=== PATIENT | female | born 1945 | race Caucasian/White ===

== ENCOUNTER → 2020-09-26 13:35 | Outpatient (BNVA) | payer MEDICARE, OTHER, SELFPAY | PROVIDERS: PCP Family Medicine; Referring Provider Family Medicine; Visit Provider Student in an Organized Health Care Education/Training Program | DX: M35.3 Polymyalgia rheumatica (principal); Z79.52 Long term (current) use of systemic steroids | CPT/HCPCS: 99212 ==

== ENCOUNTER 2020-10-08 13:32 | Outpatient (REF) | payer MEDICARE, OTHER, SELFPAY ==
--- NOTE | 2020-10-08 13:38 | MM_ITS ---
EXAMINATION: BONE DENSITOMETRY CLINICAL INDICATION: Long-term (current) use of systemic steroids. COMPARISON: None (current study represents initial baseline exam). TECHNIQUE: Using a [employer] DXA System (software version: 13.1) manufactured by [employer], dual-energy x-ray absorptiometry was performed of the lumbar spine and left hip. The images are of good technical quality. Summary results are attached. FINDINGS: AP SPINE L1-L4: BMD 1.462 g/cm2, Z-score 3.0, T-score 2.3, normal. LEFT FEMUR, NECK: BMD 0.764 g/cm2, Z-score -0.7, T-score -2.0, osteopenia. LEFT FEMUR, TOTAL: BMD 0.860 g/cm2, Z-score -0.2, T-score -1.2, osteopenia. IDENTIFIED RISK FACTORS: Height loss, secondary osteoporosis, menopause, glucocorticoids (chronic), thiazide. HISTORY OF FRACTURE: None listed. MEDICATIONS: Calcium supplements or multivitamin, vitamin D. MM/XR DEXA axial skeleton IMPRESSION: 1. DIAGNOSIS: Osteopenia based on the lowest T-score value of -2.0 in the femoral neck applying World Health Organization criteria. 2. 10-YEAR FRACTURE RISK PREDICTION, FRAX: Major osteoporotic fracture (clinical spine, forearm, hip or shoulder) 18.5%. Hip fracture 5.3%. 3. Treatment Recommendations: NOF guidelines recommend consideration for treatment in postmenopausal women and men age 50 and older presenting with the following: -A hip or vertebral (clinical or morphometric) fracture. -T-score less than or equal to -2.5 at the femoral neck or spine after appropriate evaluation to exclude secondary causes. -Low bone mass at the hip or spine and a 10-year fracture probability by FRAX of greater than or equal to 3% for hip fracture or greater than or equal to 20% for major osteoporotic fracture based on the [place] adapted WHO algorithm. 4. Other Recommendations: All treatment decisions require clinical judgment and consideration of individual patient factors, including patient preferences, comorbidities, previous drug use, risk factors not captured in the FRAX model (e.g. frailty, falls, vitamin D deficiency, increased bone turnover, interval significant decline in bone density) and possible under or overestimation of fracture risk by FRAX. Additional medical evaluation for secondary cause of low bone mineral density may be appropriate. FUTURE SCAN RECOMMENDATION: People with diagnosed cases of osteoporosis or at high risk for fracture should have regular bone mineral density tests. For patients eligible for Medicare, routine testing is allowed once every 2 years. The testing frequency can be increased to one year for patients who have rapidly progressing disease, those who are receiving or discontinuing medical therapy to restore bone mass, or have additional risk factors.
== END 2020-10-08 13:33 | disposition home or self-care (01) ==
LOC: HO.MAMMO 13:32
PROVIDERS: PCP Family Medicine; Visit Provider Student in an Organized Health Care Education/Training Program
DX: Z13.820 Encounter for screening for osteoporosis (principal); Z78.0 Asymptomatic menopausal state; R29.890 Loss of height; Z79.52 Long term (current) use of systemic steroids; Z79.899 Other long term (current) drug therapy
CPT/HCPCS: 77080

== ENCOUNTER → 2020-11-28 14:13 | Outpatient (BNVA) | payer MEDICARE, SELFPAY | PROVIDERS: PCP Family Medicine; Visit Provider Student in an Organized Health Care Education/Training Program | DX: M35.3 Polymyalgia rheumatica (principal); M81.0 Age-related osteoporosis without current pathological fracture; Z79.52 Long term (current) use of systemic steroids | CPT/HCPCS: 99212 ==

== ENCOUNTER → 2021-02-06 13:55 | Outpatient (BNVA) | payer MEDICARE, SELFPAY | PROVIDERS: PCP Family Medicine; Visit Provider Student in an Organized Health Care Education/Training Program | DX: M35.3 Polymyalgia rheumatica (principal); M81.0 Age-related osteoporosis without current pathological fracture | CPT/HCPCS: 99212 ==

== ENCOUNTER 2021-06-13 14:05 | Outpatient (REF) | payer MEDICARE, SELFPAY ==
[2021-06-13 15:12] LABS: Alanine Aminotransferase 31 U/L (0-31); Albumin Level 3.6 g/dL (3.5-5.0); Alkaline Phosphatase 102 U/L (39-117); Anion Gap 14 (12-20); Aspartate Amino Transferase 19 U/L (5-31); Bilirubin Total 0.3 mg/dL (0.0-1.0); Blood Urea Nitrogen 18 mg/dL (9-16); C Reactive Protein 0.28 mg/dL (< or = 0.50); Calcium 9.2 mg/dL (8.4-10.2); Carbon Dioxide 25 mmol/L (22-29); Chloride 107 mmol/L (96-108); Estimated Glomerular Filt Rate > 60; Glucose Random 136 mg/dL (60-115); Potassium 3.9 mmol/L (3.3-5.1); Sodium 142 mmol/L (135-145); Total Protein 6.6 g/dL (6.5-8.0)
[2021-06-13 15:36] LABS: Erythrocyte Sedimentation Rate 22 MM/HR (0-20)
[2021-06-18 12:56] LABS: Vitamin D 25-OH, D2 <4 ng/mL; Vitamin D 25-OH, D3 53 ng/mL; Vitamin D 25-OH, Total 53 ng/mL (30-100)
== END 2021-06-13 14:06 | disposition home or self-care (01) ==
LOC: HO.LAB 14:05
PROVIDERS: PCP Family Medicine; Visit Provider Student in an Organized Health Care Education/Training Program
DX: M81.0 Age-related osteoporosis without current pathological fracture (principal)
CPT/HCPCS: 36415; 80053; 82306; 85652; 86140

== ENCOUNTER → 2021-06-17 15:08 | Outpatient (BNVA) | payer MEDICARE, SELFPAY | PROVIDERS: PCP Family Medicine; Visit Provider Student in an Organized Health Care Education/Training Program | DX: M35.3 Polymyalgia rheumatica (principal); M81.0 Age-related osteoporosis without current pathological fracture | CPT/HCPCS: 99212 ==

== ENCOUNTER → 2021-12-18 12:22 | Outpatient (BNVA) | payer MEDICARE, SELFPAY | PROVIDERS: PCP Family Medicine; Visit Provider Nurse Practitioner Family | DX: M35.3 Polymyalgia rheumatica (principal); M81.0 Age-related osteoporosis without current pathological fracture; M54.50 Low back pain, unspecified | CPT/HCPCS: 99212 ==

== ENCOUNTER 2022-06-15 09:47 | Outpatient (REF) | payer MEDICARE, SELFPAY ==
[2022-06-15 12:01] LABS: Alanine Aminotransferase 27 U/L (0-31); Albumin Level 3.4 g/dL (3.5-5.0); Alkaline Phosphatase 103 U/L (39-117); Anion Gap 14 (12-20); Aspartate Amino Transferase 24 U/L (5-31); Bilirubin Total 0.4 mg/dL (0.0-1.0); Blood Urea Nitrogen 19 mg/dL (9-16); Calcium 8.8 mg/dL (8.4-10.2); Carbon Dioxide 26 mmol/L (22-29); Chloride 106 mmol/L (96-108); Estimated Glomerular Filt Rate > 60; Glucose Random 114 mg/dL (60-115); Sodium 142 mmol/L (135-145); Total Protein 6.5 g/dL (6.5-8.0)
[2022-06-15 12:25] LABS: Vitamin D 25-OH Total 44.2 ng/mL (>30)
[2022-06-15 12:26] LABS: Erythrocyte Sedimentation Rate 25 MM/HR (0-20)
== END 2022-06-15 09:48 | disposition home or self-care (01) ==
LOC: HO.WFDLDS 09:47
PROVIDERS: Visit Provider Nurse Practitioner Family
DX: M35.3 Polymyalgia rheumatica (principal)
CPT/HCPCS: 36415; 80053; 82306; 85652; 86140

== ENCOUNTER → 2022-06-17 12:28 | Outpatient (BNVA) | payer MEDICARE, SELFPAY | PROVIDERS: PCP Internal Medicine; Visit Provider Nurse Practitioner Family | DX: M35.3 Polymyalgia rheumatica (principal); M85.80 Other specified disorders of bone density and structure, unspecified site; M53.3 Sacrococcygeal disorders, not elsewhere classified | CPT/HCPCS: 99212 ==

== ENCOUNTER 2022-06-25 12:49 | Outpatient (REF) | payer MEDICARE, SELFPAY ==
--- NOTE | ~2022-06-25 | XR_ITS ---
EXAMINATION: XR SACROILIAC JOINTS CLINICAL INFORMATION: Sacrococcygeal disorder COMPARISON: None TECHNIQUE: 3 views of the sacroiliac joints FINDINGS: No acute visible fracture or dislocation. Bilateral sacroiliac joints are patent. Very slight degenerative changes at the inferior margin of the left sacroiliac joint. Degenerative arthropathy at the lumbosacral junction. Joint spaces and alignment are otherwise maintained. Soft tissues are unremarkable. XR/XR sacroiliac joint min 3V IMPRESSION: 1. No acute visible fracture or dislocation. 2. Bilateral sacroiliac joints are patent. 3. Very slight degenerative changes at the inferior margin of the left sacroiliac joint. 4. Degenerative arthropathy at the lumbosacral junction.
== END 2022-06-25 12:50 | disposition home or self-care (01) ==
LOC: HO.XRAY 12:49
PROVIDERS: PCP Internal Medicine; Visit Provider Nurse Practitioner Family
DX: M53.3 Sacrococcygeal disorders, not elsewhere classified (principal)
CPT/HCPCS: 72202

== ENCOUNTER 2022-10-13 10:58 | Outpatient (REF) | payer MEDICARE, SELFPAY ==
--- NOTE | ~2022-10-13 | MM_ITS ---
EXAMINATION: BONE DENSITOMETRY CLINICAL INDICATION: Other specified disorders of bone density and structure. COMPARISON: Baseline BD dated 10/08/2020. TECHNIQUE: Using a [employer] DXA System (software version: 13.1) manufactured by [employer], dual-energy x-ray absorptiometry was performed of the lumbar spine and left hip. The images are of good technical quality. Summary results are attached. FINDINGS: AP SPINE L1-L4 (excluding L3): The data of L1-L4 has been changed to exclude the L3 vertebral body, because degenerative changes at this level may cause overestimation of lumbar spine density. Current: BMD 1.457 g/cm2, Z-score 3.0, T-score 2.4, normal, 1.9% increase from baseline (<5% change is not significant). Baseline: BMD 1.430 g/cm2. LEFT FEMUR, NECK: Current: BMD 0.799 g/cm2, Z-score -0.4, T-score -1.7, osteopenia. Baseline: BMD 0.764 g/cm2. LEFT FEMUR, TOTAL: Current: BMD 0.860 g/cm2, Z-score -0.1, T-score -1.2, osteopenia, 0.0% no change from baseline (<5% change is not significant). Baseline: BMD 0.860 g/cm2. IDENTIFIED RISK FACTORS: Height loss, secondary osteoporosis, glucocorticoids (chronic), thiazide, menopause. HISTORY OF FRACTURE: None listed. MEDICATIONS: Vitamin D, bisphosphonate. MM/XR DEXA axial skeleton IMPRESSION: 1. DIAGNOSIS: Osteopenia based on the lowest T-score value of -1.7 in the femoral neck applying World Health Organization criteria. 2. 10-YEAR FRACTURE RISK PREDICTION, FRAX: Not performed in this patient on estrogen or bone building treatments. 3. Treatment Recommendations: NOF guidelines recommend consideration for treatment in postmenopausal women and men age 50 and older presenting with the following: -A hip or vertebral (clinical or morphometric) fracture. -T-score less than or equal to -2.5 at the femoral neck or spine after appropriate evaluation to exclude secondary causes. -Low bone mass at the hip or spine and a 10-year fracture probability by FRAX of greater than or equal to 3% for hip fracture or greater than or equal to 20% for major osteoporotic fracture based on the [place] adapted WHO algorithm. 4. Other Recommendations: All treatment decisions require clinical judgment and consideration of individual patient factors, including patient preferences, comorbidities, previous drug use, risk factors not captured in the FRAX model (e.g. frailty, falls, vitamin D deficiency, increased bone turnover, interval significant decline in bone density) and possible under or overestimation of fracture risk by FRAX. Additional medical evaluation for secondary cause of low bone mineral density may be appropriate. FUTURE SCAN RECOMMENDATION: People with diagnosed cases of osteoporosis or at high risk for fracture should have regular bone mineral density tests. For patients eligible for Medicare, routine testing is allowed once every 2 years. The testing frequency can be increased to one year for patients who have rapidly progressing disease, those who are receiving or discontinuing medical therapy to restore bone mass, or have additional risk factors.
== END 2022-10-13 10:59 | disposition home or self-care (01) ==
LOC: HO.MAMMO 10:58
PROVIDERS: PCP Internal Medicine; Visit Provider Nurse Practitioner Family
DX: Z13.820 Encounter for screening for osteoporosis (principal); Z78.0 Asymptomatic menopausal state; M85.80 Other specified disorders of bone density and structure, unspecified site
CPT/HCPCS: 77080

== ENCOUNTER → 2022-12-03 12:57 | Outpatient (BNVA) | payer MEDICARE, SELFPAY | PROVIDERS: PCP Internal Medicine; Visit Provider Nurse Practitioner Family | DX: M85.80 Other specified disorders of bone density and structure, unspecified site (principal); M35.3 Polymyalgia rheumatica | CPT/HCPCS: 99212 ==

== ENCOUNTER 2023-06-09 14:08 | Outpatient (AMB) | payer MEDICARE, SELFPAY ==
[2023-06-09 14:14] VITALS: BP 116/64; PULSE 89; TEMP 36.4; O2SAT 98; BMI 45.0
--- NOTE | 2023-06-09 14:14 | MHC.OFFVIS ---
Intake Vital Signs 06/09/23 14:14 Height 5 ft 2 in Weight 246 lb 4.101 oz BMI 45.0 BP 116/64 Blood Pressure Location Rt brachial Position Sitting Pulse 89 Pulse Source Pulse Oximeter Temp 97.5 F Temp Source Skin Pulse Oximetry (%) 98 Intake Visit Reasons: osteoporosis Intake Note: Pt seen today for Osteoporosis follow up. S/p ICD insertion Chaser Tar Required: No Accompanied by: Self / Same As Patient Allergies penicillin V Allergy (Intermediate, Verified 06/09/23 14:17) Rash benazepril Allergy (Mild, Verified 06/09/23 14:17) Cough aspirin Adverse Reaction (Intermediate, Verified 06/09/23 14:17) bleeding Medication List - Last Reconciled 06/09/23 by Barb Lawler MD acetaminophen ER (Tylenol Arthritis Pain) 1,300 mg PO BID amiodarone 400 mg PO DAILY apixaban (Eliquis) 5 mg PO BID bumetanide 1 mg PO DAILY celecoxib (Celebrex) 200 mg PO BID cholecalciferol (vitamin D3) 25 mcg PO DAILY esomeprazole magnesium (Nexium) 40 mg PO DAILY folic acid 1 mg PO DAILY magnesium hydroxide 400 mg PO DAILY metoprolol succinate ER 50 mg PO DAILY omega-3 fatty acids (Fish Oil Concentrate) 1,000 mg PO DAILY rosuvastatin 10 mg PO DAILY sacubitril-valsartan 49-51 mg (Entresto) 1 tab PO BID spironolactone 25 mg PO DAILY sulfasalazine (Azulfidine EN-tabs) 1,000 mg PO BID HPI HPI Comments History of Present Illness Details 77yoF presents for follow-up of osteopenia. She has a history of PMR as well. was last seen by Yesenia Rudd 12/17 Off prednisone since November 2020. On sulfasalazine for history of Crohn's disease for decades (dx in her 30s). Was on alendronate for osteoporosis for 8 months stopped after May 2021 due to hip pain. Per patient report her hip pain resolved once the alendronate was discontinued. patient states that she is doing well overall. last month she was found to have a left bundle branch block and now she has a pacemaker placed. See gets bilateral knee pain with walking as well as back pain with walking. She uses a cane for balance. She takes Celebrex 20 mg Twice daily. She is also on Eliquis. denies any GI bleeding. Has had bilateral shoulder stiffness for many years. She has had bilateral shoulder replacement [facility], [facility] Medical History (Updated 06/09/23 @ 14:45 by Barb Lawler MD) Osteopenia with high risk of fracture Polymyalgia rheumatica Surgical History History of implantable cardioverter-defibrillator (ICD) insertion Social History Household Members: Spouse Alcohol intake: current Alcohol intake frequency: a few times a month Patient Tobacco Use Status: Never used Tobacco e-Cigarette/Vaping Use: Never Used Review of Systems [facility] [place] Reports back pain, Reports arthralgias and Denies radiating pain into limb Physical Exam Vital Signs: Last Vital Signs Temp 97.5 F 06/09/23 14:14 Pulse 89 06/09/23 14:14 BP 116/64 06/09/23 14:14 Pulse Ox 98 06/09/23 14:14 BMI result Body Mass Index 45.0 Const General: cooperative, healthy appearing and comfortable Nutritional Appearance: obese morbidly obese Orientation/consciousness: patient oriented x3 Limitations: ambulation with cane HEENT Head: Yes normocephalic and Yes atraumatic Mouth: moist mucous membranes Resp Effort & Inspection: normal respiratory effort and able to speak in complete sentences Neuro General: patient oriented x3 Extrem Other: osteoarthritic changes of both hands with no active synovitis. bilateral limited shoulder abduction Assessment & Plan Assessment & Plan (1) Osteopenia: Comment: DEXA in 2019 with T-score? -2.0 with high FRAX she was started on alendronate due to the high FRAX which she took for approximately 8 months and stopped May 2021.? Alendronate was discontinued by the patient due to hip pain DEXA 09/2022 with T -1.7 Code(s): M85.80 - Other specified disorders of bone density and structure, unspecified site Qualifiers: Osteopenia location: multiple sites Qualified Code(s): M85.89 - Other specified disorders of bone density and structure, multiple sites Plan: 77-year-old female with osteopenia presents for follow-up. No history of fractures. Since last visit. Patient's most recent DEXA scan shows an improved T-score. FRAX is 12% for major osteoporosis fracture and 2.7% for hip fractures. No need to restart antiresorptives at this point. Repeat DEXA 09/2024 (2) Polymyalgia rheumatica: Code(s): M35.3 - Polymyalgia rheumatica Plan: Patient diagnosed with PMR based on bilateral shoulder pain. Off prednisone since November 2020. Her pain improved after bilateral shoulder replacements. Her inflammatory markers have consistently been stable. PMR continues to appear to be in remission. No further action needed at this time. (3) Generalized osteoarthritis: Code(s): M15.9 - Polyosteoarthritis, unspecified Plan: Gets low back pain with activity as well as bilateral knee pain with walking. Is currently taking Celebrex 200 mg Twice daily as a standing dose. Discussed the cardiovascular risk with NSAIDs. Advised patient to try to reduce the Celebrex to 200 mg once daily or only use as needed. Try to use Tylenol Arthritis as much as possible, apply Voltaren gel for both knees 4 times a day. Plan I spent 26 minutes reviewing patient's chart, evaluating patient, counseling patient and documenting in the chart Coding Level of Care Code Est Pt Level 4 (88694) Diagnoses Osteopenia M85.89 Osteopenia location: multiple sites Polymyalgia rheumatica M35.3 Generalized osteoarthritis M15.9
== END 2023-06-09 14:42 | disposition home or self-care (01) ==
PROVIDERS: PCP Internal Medicine; Visit Provider Student in an Organized Health Care Education/Training Program
DX: M85.89 Other specified disorders of bone density and structure, multiple sites (principal); M35.3 Polymyalgia rheumatica; M15.9 Polyosteoarthritis, unspecified
CPT/HCPCS: 99214

== ENCOUNTER → 2023-06-09 14:08 | Outpatient (BNVA) | payer MEDICARE, SELFPAY | PROVIDERS: PCP Internal Medicine; Visit Provider Student in an Organized Health Care Education/Training Program | DX: M85.89 Other specified disorders of bone density and structure, multiple sites (principal); M35.3 Polymyalgia rheumatica; M15.9 Polyosteoarthritis, unspecified | CPT/HCPCS: 99212 ==

== ENCOUNTER 2024-03-28 10:01 | Outpatient (AMB) | payer MEDICARE, SELFPAY ==
--- NOTE | 2024-03-28 10:13 | MHC.PC.OV ---
Vital Signs 03/28/24 10:22 Height 5 ft 2.2 in Weight 240 lb 6 oz BMI 43.7 BP 130/68 Blood Pressure Location Lt brachial Position Sitting Respiration 14 Pulse 80 Pulse Source Pulse Oximeter Temp 97.4 F Temp Source Oral Pulse Oximetry (%) 98 Oxygen Delivery Method Room Air Intake Visit Reasons: Establish Care / Discharge follow up Allergies penicillin V Allergy (Intermediate, Verified 03/28/24 10:14) Rash benazepril Allergy (Mild, Verified 03/28/24 10:14) Cough aspirin Adverse Reaction (Intermediate, Verified 03/28/24 10:14) bleeding Medication List - Last Reconciled 03/28/24 by Megan Bolanos MD acetaminophen ER (Tylenol Arthritis Pain) 1,300 mg PO BID amiodarone 400 mg PO DAILY apixaban (Eliquis) 5 mg PO BID bumetanide 1 mg PO DAILY celecoxib (Celebrex) 200 mg PO BID cholecalciferol (vitamin D3) 25 mcg PO DAILY esomeprazole magnesium (Nexium) 40 mg PO DAILY folic acid 1 mg PO DAILY magnesium hydroxide 400 mg PO DAILY metoprolol succinate ER 50 mg PO DAILY omega-3 fatty acids (Fish Oil Concentrate) 1,000 mg PO DAILY rosuvastatin 10 mg PO DAILY sacubitril-valsartan 49-51 mg (Entresto) 1 tab PO BID spironolactone 25 mg PO DAILY sulfasalazine (Azulfidine EN-tabs) 1,000 mg PO BID Tobacco use date assessed: 03/28/24 Fall risk assessment: No Falls in past year Last assessed Fall Risk: 03/28/24 Dental Screening Dental Screen Date: 03/28/24 Did you have a dental visit in the last 12 months?: Yes Did you have a dental problem in the last 6 months where you did not have access to dental care?: No Was dental information given to patient?: Patient has dentist HPI HPI Comments History of Present Illness Details Patient is an 78 year old female with a past medical history of CHF, atrial fibrillation, GERD presenting to [facility] Hospitalized March 15-. Malaise and fatigue, dysuria and palpitaitons. UCx+, afib with RVR. Treated with abx therapy CV: Follows with Dr Hunter. On eliquis, bumex, entresto, spironolactone, amoiodarone (restarted March 19) 02/24/2024 Mammogram [facility] Medical History (Updated 04/02/24 @ 11:36 by Megan Bolanos MD) Osteopenia with high risk of fracture Polymyalgia rheumatica Surgical History (Updated 03/28/24 @ 10:57 by Megan Bolanos MD) History of implantable cardioverter-defibrillator (ICD) insertion Social History Household Members: Spouse Housing: House Alcohol intake: current Alcohol intake frequency: a few times a month Patient Tobacco Use Status: Never used Tobacco e-Cigarette/Vaping Use: Never Used Second Hand Smoke Exposure: Yes (past) service: No Current occupational status: employed 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 1. Little interest or pleasure in doing things: not at all 2. Feeling down, depressed, or hopeless: not at all 3. Trouble falling or staying asleep, or sleeping too much: not at all 4. Feeling tired or having little energy: not at all 5. Poor appetite or overeating: several days 6. Feeling bad about yourself - or that you are a failure or have let yourself or your family down: not at all 7. Trouble concentrating on things, such as reading the newspaper or watching television: not at all 8. Moving or speaking so slowly that other people could have noticed. Or the opposite - being so fidgety or restless that you have been moving around a lot more than usual: not at all 9. Thoughts that you would be better off or of hurting yourself in some way: not at all Total score: 1 Depression Screening Interpretation: Negative Depression Screening Done: Yes 46419 - PHQ-9 Billing: Yes Source: Developed by Drs. Kenrick Murrieta, Coni Hernandez, Brien Byers and colleagues, with an educational beverley from [employer]. Thrive Questionnaire Date Thrive assessed: 03/28/24 What is your living situation today?: I have a steady place to live Within the past 12 months, did the food you bought not last and you didn't have the money to get more?: Never true Within the past 12 months, did you worry whether your food would run out before you got money to buy more?: Never true Do you have trouble paying for medicines?: No Do you have trouble getting transportation to medical appointments?: No Do you have trouble paying your heating and electricity bill?: No Do you have trouble taking care of your child, family member or friend?: No Do you have trouble with day-to-day activities such as bathing, preparing meals, shopping, managing finances, etc.?: No Are you currently unemployed and looking for a job?: Yes Are you interested in more education?: No Please select the resources that you would like help with: None THRIVE Score: 0 AUDIT C Alcohol Use Questionnaire (AUDIT-C) 1. How often do you have a drink containing alcohol?: Never 2. How many drinks containing alcohol do you have on a typical day when you are drinking?: 1 or 2 3. How often do you have six or more drinks on one occasion?: Never Total Score: 0 MARY JANE-7 AMB Questionnaire MARY JANE-7 Date MARY JANE - 7 assessed: 03/28/24 Feeling nervous, anxious, or on edge: 1 = Several days Not being able to stop or control worryin = Not at all Worrying too much about different things: 0 = Not at all Trouble relaxin = Not at all Being so restless that it is hard to sit still: 0 = Not at all Becoming easily annoyed or irritable: 0 = Not at all Feeling afraid as if something awful might happen: 0 = Not at all Total MARY JANE-7 score (0-4 normal; 5-9 mild; 10-14 moderate; 15-21 severe): 1 Source: Developed by Drs. Kenrick Murrieta, Coni Hernandez, Brien Byers and colleagues, with an educational beverley from [employer]. Review of Systems Const Details: ROS CONSTITUTIONAL: Denies weight loss, fever and chills. HEENT: Denies changes in vision and hearing. RESPIRATORY: Denies SOB and cough. CV: Denies palpitations and CP GI: Denies abdominal pain, nausea, vomiting and diarrhea. : Denies dysuria and urinary frequency. MSK: Denies new myalgia and joint pain. SKIN: Denies rash and pruritus. NEUROLOGICAL: Denies headache PSYCHIATRIC: Denies recent changes in mood. Physical exam (Primary Care) Vital Signs: Last Vital Signs Temp 97.4 F 03/28/24 10:22 Pulse 80 03/28/24 10:22 Resp 14 03/28/24 10:22 BP 130/68 03/28/24 10:22 Pulse Ox 98 03/28/24 10:22 Oxygen Delivery Method Room Air 03/28/24 10:22 PHYSICAL EXAM: GENERAL: Alert and oriented x 3. NAD EYES: EOMI. Anicteric. HENT: Moist mucous membranes. No scleral icterus. No cervical lymphadenopathy. LUNGS: Clear to auscultation bilaterally. CARDIOVASCULAR: Regular rate and rhythm. No murmur. No JVD. ABDOMEN: Soft, non-tender +bs EXTREMITIES: No edema. Non-tender. SKIN: No rashes or lesions. Warm. NEUROLOGIC: No focal neurological deficits. CN II-XII grossly intact PSYCHIATRIC: Cooperative. Appropriate mood and affect BMI result Body Mass Index 43.7 Tobacco/Smoking Status: Tobacco use Status Tobacco use date assessed 03/28/24 03/28/24 10:20 Patient Tobacco Use Status Never used Tobacco 03/28/24 10:20 e-Cigarette/Vaping Use Never Used 03/28/24 10:20 PHQ-9: PHQ-9 Score PHQ-9: Total score 1 03/28/24 11:20 Depression Screening Interpretation: Negative Thrive Assessment: Date of Thrive Assessment Date Thrive assessed 03/28/24 03/28/24 10:34 Assessment and Plan Assessment & Plan (1) Iron deficiency anemia: Comment: monitor labs. recheck. Code(s): D50.9 - Iron deficiency anemia, unspecified Qualifiers: Iron deficiency anemia type: unspecified iron deficiency Qualified Code(s): D50.9 - Iron deficiency anemia, unspecified (2) LBBB (left bundle branch block): Comment: continue cardiology follow up Code(s): I44.7 - Left bundle-branch block, unspecified (3) Congestive heart failure (CHF): Comment: euvolemic Code(s): I50.9 - Heart failure, unspecified Qualifiers: Heart failure chronicity: chronic Heart failure type: systolic Qualified Code(s): I50.22 - Chronic systolic (congestive) heart failure (4) Hospital discharge follow-up: Code(s): Z09 - Encounter for follow-up examination after completed treatment for conditions other than malignant neoplasm Plan: course reviewed. meds reconciled (5) Generalized osteoarthritis: Code(s): M15.9 - Polyosteoarthritis, unspecified (6) Knee pain, bilateral: Code(s): M25.561 - Pain in right knee; M25.562 - Pain in left knee Orders: Orders IRON PROFILE 03/28/24 D50.9 - Iron deficiency anemia, unspecified, I44.7 - Left bundle-branch block, unspecified, I50.22 - Chronic systolic (congestive) heart failure PT Evaluation and Treatment 03/28/24 M15.9 - Polyosteoarthritis, unspecified, M25.561 - Pain in right knee, M25.562 - Pain in left knee Complete Blood Count Auto Diff 03/28/24 D50.9 - Iron deficiency anemia, unspecified, I44.7 - Left bundle-branch block, unspecified, I50.22 - Chronic systolic (congestive) heart failure Lipid Panel 03/28/24 D50.9 - Iron deficiency anemia, unspecified, I44.7 - Left bundle-branch block, unspecified, I50.22 - Chronic systolic (congestive) heart failure Pathologist Review - CBC 03/28/24 D50.9 - Iron deficiency anemia, unspecified, I44.7 - Left bundle-branch block, unspecified, I50.22 - Chronic systolic (congestive) heart failure Medications: New bumetanide 1 mg PO DAILY 90 tabs 3RF Changed From rosuvastatin 10 mg PO DAILY To rosuvastatin 10 mg PO DAILY 90 days 90 tabs 3RF Coding Level of Care Code TCM Mod MDM <= 14 Days Diagnoses Iron deficiency anemia, unspecified iron deficiency anemia type D50.9 Iron deficiency anemia type: unspecified iron deficiency LBBB (left bundle branch block) I44.7 Chronic systolic congestive heart failure I50.22 Heart failure chronicity: chronic Heart failure type: systolic Hospital discharge follow-up Z09 Generalized osteoarthritis M15.9 Knee pain, bilateral M25.561; M25.562
[2024-03-28 10:22] VITALS: BP 130/68; PULSE 80; RESP 14; TEMP 36.3; O2SAT 98; BMI 43.7
== END 2024-03-28 11:34 | disposition home or self-care (01) ==
PROVIDERS: PCP Internal Medicine; Visit Provider Internal Medicine
DX: D50.9 Iron deficiency anemia, unspecified (principal); I44.7 Left bundle-branch block, unspecified; I50.22 Chronic systolic (congestive) heart failure; Z09 Encounter for follow-up examination after completed treatment for conditions other than malignant neoplasm; M15.9 Polyosteoarthritis, unspecified; M25.561 Pain in right knee; M25.562 Pain in left knee
CPT/HCPCS: 99214

== ENCOUNTER 2024-04-25 10:39 | Outpatient (REF) | payer MEDICARE, SELFPAY ==
[2024-04-25 14:27] LABS: MANUAL DIFF FLAG NO
[2024-04-25 14:33] LABS: Basophils Absolute Auto 0.1 X10*3/uL (0.0-0.2); Basophils Percent Auto 1.4 % (0-2); Eosinophils Absolute Auto 0.2 X10*3/uL (0.0-0.4); Eosinophils Percent Auto 2.9 % (0-4); Hematocrit 40.4 % (37.0-47.0); Hemoglobin 12.1 g/dl (12.0-16.0); Imm Gran Abs Auto 0.02 X10*3/uL (0.00-0.03); Imm Gran Pct Auto 0.3 % (0.0-0.4); Lymphocytes Absolute Auto 2.1 X10*3/uL (1.2-4.9); Lymphocytes Percent Auto 35.8 % (20-40); Mean Corpuscular Hemoglobin 26.4 pg (27.0-33.0); Mean Corpuscular Volume 88.2 fL (80.0-98.0); Monocytes Absolute Auto 0.4 X10*3/uL (0.1-1.2); Monocytes Percent Auto 7.2 % (2-11); Neutrophils Absolute Auto 3.1 x10*3/uL (2.0-8.3); Neutrophils Percent Auto 52.4 % (45-73); Platelet Count 342 X10*3/uL (160-400); Red Blood Count 4.58 X10*6/uL (4.20-5.50); White Blood Count 5.9 X10*3/uL (4.8-10.8)
[2024-04-25 14:57] LABS: Cholesterol 182 mg/dL (<200); HDL Cholesterol 44 mg/dL (>40); Iron 61 mcg/dL (30-160); LDL Cholesterol Calculated 98 mg/dL (<100); Percent Iron Saturation 16 % (15-50); Total Iron Binding Capacity 377 mcg/dL (228-428); Triglycerides 203 mg/dL (<150); Unsaturated Iron Binding 316 ug/dL
== END 2024-04-25 10:40 | disposition home or self-care (01) ==
LOC: HO.WFDLDS 10:39
PROVIDERS: Visit Provider Internal Medicine
DX: I50.22 Chronic systolic (congestive) heart failure (principal); I44.7 Left bundle-branch block, unspecified; D50.9 Iron deficiency anemia, unspecified
CPT/HCPCS: 36415; 80061; 83540; 85025

== ENCOUNTER 2024-06-08 12:39 | Outpatient (AMB) | payer MEDICARE, SELFPAY ==
--- NOTE | 2024-06-08 12:40 | A.OFFVIS_ITS ---
Vital Signs 06/08/24 12:47 Height 5 ft 2.2 in Weight 237 lb 3.478 oz BMI 43.1 BP 112/68 Blood Pressure Location Lt brachial Position Sitting Pulse 84 Pulse Source Pulse Oximeter Pulse Oximetry (%) 94 Oxygen Delivery Method Room Air Intake Visit Reasons: osteoporosis/CM Intake Note: Patient presents for osteoporosis. Allergies penicillin V Allergy (Intermediate, Verified 06/08/24 12:44) Rash benazepril Allergy (Mild, Verified 06/08/24 12:44) Cough aspirin Adverse Reaction (Intermediate, Verified 06/08/24 12:44) bleeding Medication List - Last Reconciled 06/08/24 by Barb Lawler MD acetaminophen ER (Tylenol Arthritis Pain) 1,300 mg PO BID amiodarone 400 mg PO DAILY apixaban (Eliquis) 5 mg PO BID bumetanide 1 mg PO DAILY cholecalciferol (vitamin D3) 25 mcg PO DAILY esomeprazole magnesium (Nexium) 40 mg PO DAILY ferrous sulfate (FeroSul) 325 mg PO DAILY folic acid 1 mg PO DAILY magnesium hydroxide 400 mg PO DAILY metoprolol succinate ER 75 mg PO DAILY omega-3 fatty acids (Fish Oil Concentrate) 1,000 mg PO DAILY rosuvastatin 10 mg PO DAILY 90 days sacubitril-valsartan 49-51 mg (Entresto) 1 tab PO BID spironolactone 25 mg PO DAILY sulfasalazine (Azulfidine EN-tabs) 1,000 mg PO BID walker (Ultra-Light Rollator misc) With seat HPI Comments Details: 78yoF presents for follow-up of osteopenia. She has a history of PMR as well. was last seen by Yesenia Rudd 05/2023 Off prednisone since November 2020. On sulfasalazine for history of Crohn's disease for decades (dx in her 30s). Was on alendronate for osteoporosis for 8 months stopped after May 2021 due to hip pain. She states that her knees and ankles have been more painful recently. Over the last 2 months she has been using a walker. Pain is worse with walking and with activity. She has morbid obesity and she has lost about 10 lb by adjusting her diet. She stopped Celebrex, she only uses Tylenol. She also has a rash on her feet. 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 Current occupational exposures/hazards: No Cognitive needs: No Hearing needs: No Vision needs: No Review of Systems Musc Reports arthralgias, Reports limited range of motion and Reports stiffness Skin/Breast Reports pruritus, Reports lesions and Reports rash Physical Exam Vital Signs: Last Vital Signs Pulse 84 06/08/24 12:47 BP 112/68 06/08/24 12:47 Pulse Ox 94 06/08/24 12:47 Oxygen Delivery Method Room Air 06/08/24 12:47 BMI result Body Mass Index 43.1 Const General: cooperative, healthy appearing and comfortable Nutritional Appearance: obese morbidly obese Orientation/consciousness: patient oriented x3 Limitations: ambulation with cane HEENT Head: Yes normocephalic and Yes atraumatic Mouth: moist mucous membranes Resp Effort & Inspection: normal respiratory effort and able to speak in complete sentences Skin Other: Signs of chronic venous stasis both ankles Tinea pedis of right foot, bilateral toenail onychomycosis Neuro General: patient oriented x3 Extrem Other: osteoarthritic changes of both hands with no active synovitis. bilateral limited shoulder abduction Assessment & Plan Assessment & Plan (1) Osteopenia: Comment: DEXA in 2019 with T-score? -2.0 with high FRAX she was started on alendronate due to the high FRAX which she took for approximately 8 months and stopped May 2021.? Alendronate was discontinued by the patient due to hip pain DEXA 09/2022 with T score -1.7 Code(s): M85.80 - Other specified disorders of bone density and structure, unspecified site Category: Medical Qualifiers: Osteopenia location: multiple sites Qualified Code(s): M85.89 - Other specified disorders of bone density and structure, multiple sites Plan: 78-year-old female with osteopenia presents for follow-up. No history of fractures. Since last visit. Patient's most recent DEXA scan shows an improved T-score. FRAX is 12% for major osteoporosis fracture and 2.7% for hip fractures. No need to restart antiresorptives at this point. Repeat DEXA 10/2023 (2) Polymyalgia rheumatica: Code(s): M35.3 - Polymyalgia rheumatica Category: Medical Plan: Patient diagnosed with PMR based on bilateral shoulder pain. Off prednisone since November 2020. Her pain improved after bilateral shoulder replacements. PMR continues to appear to be in remission. No further action needed at this time. (3) Generalized osteoarthritis: Code(s): M15.9 - Polyosteoarthritis, unspecified Category: Medical Plan: Significant bilateral knee osteoarthritis. She has a appointment with orthopedist soon. (4) Morbid obesity: Code(s): E66.01 - Morbid (severe) obesity due to excess calories Category: Medical Plan: Discussed with patient that it is likely contributing to her knee osteoarthritis. Advised patient to discuss with her PCP whether a GLP 1 agonist such as Ozempic would be appropriate for her (5) Tinea pedis: Code(s): B35.3 - Tinea pedis Category: Medical Qualifiers: Laterality: bilateral Qualified Code(s): B35.3 - Tinea pedis Plan: Prescribed clotrimazole/betamethasone cream. She stated that they would not prescribe her the oral antifungal given potential interaction with her other meds and potential liver toxicity. I explained that the cream would not likely help her toenail fungus, but will likely help her skin Plan I spent 26 minutes reviewing patient's chart, evaluating patient, ordering diagnostic workup counseling patient and documenting in the chart Orders: Orders XR DEXA axial skeleton 10/25/24 M85.89 - Other specified disorders of bone density and structure, multiple sites Medications: New clotrimazole-betamethasone 1-0.05 % 1 appl topical BID 45 grams 1RF B35.3 - Tinea pedis Coding Level of Care Code Est Pt Level 4 (24841) Diagnoses Osteopenia of multiple sites M85.89 Osteopenia location: multiple sites Polymyalgia rheumatica M35.3 Generalized osteoarthritis M15.9 Morbid obesity E66.01 Tinea pedis of both feet B35.3 Laterality: bilateral
[2024-06-08 12:47] VITALS: BP 112/68; PULSE 84; O2SAT 94; BMI 43.1
== END 2024-06-08 13:09 | disposition home or self-care (01) ==
PROVIDERS: Visit Provider Student in an Organized Health Care Education/Training Program
DX: M85.89 Other specified disorders of bone density and structure, multiple sites (principal); M35.3 Polymyalgia rheumatica; M15.9 Polyosteoarthritis, unspecified; E66.01 Morbid (severe) obesity due to excess calories; B35.3 Tinea pedis
CPT/HCPCS: 99214

== ENCOUNTER → 2024-06-08 12:39 | Outpatient (BNVA) | payer MEDICARE, SELFPAY | PROVIDERS: Visit Provider Student in an Organized Health Care Education/Training Program | DX: M85.89 Other specified disorders of bone density and structure, multiple sites (principal); M35.3 Polymyalgia rheumatica; E66.01 Morbid (severe) obesity due to excess calories; Z68.41 Body mass index [BMI] 40.0-44.9, adult; M17.0 Bilateral primary osteoarthritis of knee; B35.3 Tinea pedis | CPT/HCPCS: 99212 ==

== ENCOUNTER 2024-06-09 14:00 | Outpatient (RCR) | payer MEDICARE, SELFPAY ==
--- NOTE | 2024-04-11 11:31 | MHC.PT.EP ---
[facility] [place] Office [place] Office [place] Office [address] [phone] F: [phone] F: [phone] F: [phone] F: [phone] Physical Therapy Plan of Care Date of Evaluation: 04/04/24 Date of Surgery: Diagnosis: right knee pain Assessment: Pt is a 78yo female who was referred to PT with R knee pain. PT exam reveals multiple impairments including reduced knee ROM, core/hip/knee weakness, abnormal posture and gait mechanics. Pt is fearful of falling and her mobility level is below baseline. Skilled PT indicated to address these impairments to help improve QOL. Pt in agreement with POC and is motivated to participate. Frequency and Duration: The patient will be seen 2x/week, x 6 weeks Short Term Goals: 1. In 3 weeks, patient will improve R quad eccentric strength to complete SLR without extension lag noted. 2. In 3 weeks, patient will be able to ambulate with upright posture and step through gait with 1 SPC x 25 feet without increased pain. 3. In 3 weeks, patient will be able to complete hooklying bridge through 50% ROM indicating increased hip/core strength. [employer] Operator Goals: 1. In 6 weeks, patient will be able to walk up and down 6 inch step with each leg no UE support needed, indicating increased stability and confidence of B LE. 2. In 6 weeks, improve LEFS score >= 15 points indicating reduced pain and improved functional mobility. Treatment Plan: Modalities to reduce pain, spasms and effusion. Manual therapy to restore motion and function. Therapeutic exercise to improve strength and flexibility. Neuromuscular re-education for posture and balance. Therapeutic activities to return to functional activities of daily living. Electronically signed by: Jennifer Salinas PT, DPT Please sign and return to therapist. Thank you for your referral.
== END 2024-11-17 09:28 | disposition home or self-care (01) ==
LOC: HO.PTWFD 14:00
PROVIDERS: PCP Internal Medicine; Visit Provider Internal Medicine
DX: M25.561 Pain in right knee (principal); M25.562 Pain in left knee; M15.9 Polyosteoarthritis, unspecified
CPT/HCPCS: 97110; 97116; 97140; 97161; 97530; 97535

== ENCOUNTER 2024-10-02 11:09 | Outpatient (AMB) | payer MEDICARE, SELFPAY ==
[2024-10-02 11:11] VITALS: BP 134/70; PULSE 94; O2SAT 95; BMI 43.1
--- NOTE | 2024-10-02 11:11 | MHC.PC.OV ---
Vital Signs 10/02/24 11:11 Height 5 ft 2.2 in Weight 237 lb 4 oz BMI 43.1 BP 134/70 Blood Pressure Location Lt brachial Position Sitting Pulse 94 Pulse Source Pulse Oximeter Pulse Oximetry (%) 95 Oxygen Delivery Method Room Air Intake Visit Reasons: 6 month F/U Allergies penicillin V Allergy (Intermediate, Verified 10/02/24 11:11) Rash benazepril Allergy (Mild, Verified 10/02/24 11:11) Cough aspirin Adverse Reaction (Intermediate, Verified 10/02/24 11:11) bleeding Tobacco use date assessed: 10/02/24 Fall risk assessment: No Falls in past year Last assessed Fall Risk: 10/02/24 Dental Screening Dental Screen Date: 10/02/24 Did you have a dental visit in the last 12 months?: Yes Did you have a dental problem in the last 6 months where you did not have access to dental care?: No Was dental information given to patient?: Patient has dentist HPI HPI Comments History of Present Illness Details Patient is an 78 year old female with a past medical history of CHF, atrial fibrillation, GERD, OA presenting for follow up CV: Follows with Dr Hunter. On eliquis, bumex, entresto, spironolactone, amoiodarone (restarted March 19). Denies chest pain, palpitations. Chronic LE edema OA: Knee pain, foot pain. Stable on prn tramadol Has been having issues with foot rash-appears as dyshidrotic eczema. Has been using lotrisone cream. 02/24/2024 Mammogram ROS CONSTITUTIONAL: Denies weight loss, fever and chills. HEENT: Denies changes in vision and hearing. RESPIRATORY: Denies SOB and cough. CV: Denies palpitations and CP GI: Denies abdominal pain, nausea, vomiting and diarrhea. : Denies dysuria and urinary frequency. MSK: Denies new myalgia and joint pain. SKIN: Denies rash and pruritus. NEUROLOGICAL: Denies headache PSYCHIATRIC: Denies recent changes in mood. PHYSICAL EXAM: GENERAL: Alert and oriented x 3. NAD EYES: EOMI. Anicteric. HENT: Moist mucous membranes. No scleral icterus. No cervical lymphadenopathy. LUNGS: Clear to auscultation bilaterally. CARDIOVASCULAR: Regular rate and rhythm. No murmur. No JVD. ABDOMEN: Soft, non-tender +bs EXTREMITIES: No edema. Non-tender. SKIN: No rashes or lesions. Warm. NEUROLOGIC: No focal neurological deficits. CN II-XII grossly intact PSYCHIATRIC: Cooperative. 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 1. Little interest or pleasure in doing things: not at all 2. Feeling down, depressed, or hopeless: not at all 3. Trouble falling or staying asleep, or sleeping too much: not at all 4. Feeling tired or having little energy: not at all 5. Poor appetite or overeating: not at all 6. Feeling bad about yourself - or that you are a failure or have let yourself or your family down: not at all 7. Trouble concentrating on things, such as reading the newspaper or watching television: not at all 8. Moving or speaking so slowly that other people could have noticed. Or the opposite - being so fidgety or restless that you have been moving around a lot more than usual: not at all 9. Thoughts that you would be better off or of hurting yourself in some way: not at all Total score: 0 Depression Screening Interpretation: Negative Depression Screening Done: Yes Source: Developed by Drs. Kenrick Murrieta, Coni Hernandez, Brien Byers and colleagues, with an educational beverley from [employer]. Thrive Questionnaire Date Thrive assessed: 09/25/24 I am a: Patient What is your living situation today?: I have a steady place to live Within the past 12 months, did the food you bought not last and you didn't have the money to get more?: Never true Within the past 12 months, did you worry whether your food would run out before you got money to buy more?: Never true Do you have trouble paying for medicines?: No Do you have trouble getting transportation to medical appointments?: No Do you have trouble paying your heating and electricity bill?: No Do you have trouble taking care of your child, family member or friend?: No Do you have trouble with day-to-day activities such as bathing, preparing meals, shopping, managing finances, etc.?: No Are you currently unemployed and looking for a job?: No Are you interested in more education?: No Please select the resources that you would like help with: None Currently or been in a relationship where the following occur: No concerns reported THRIVE Score: 0 AUDIT C Alcohol Use Questionnaire (AUDIT-C) 1. How often do you have a drink containing alcohol?: Monthly or less 2. How many drinks containing alcohol do you have on a typical day when you are drinking?: 1 or 2 3. How often do you have six or more drinks on one occasion?: Never Total Score: 1 MARY JANE-7 AMB Questionnaire MARY JANE-7 Date MARY JANE - 7 assessed: 10/02/24 Feeling nervous, anxious, or on edge: 0 = Not at all Not being able to stop or control worryin = Not at all Worrying too much about different things: 0 = Not at all Trouble relaxin = Not at all Being so restless that it is hard to sit still: 0 = Not at all Becoming easily annoyed or irritable: 0 = Not at all Feeling afraid as if something awful might happen: 0 = Not at all Total MARY JANE-7 score (0-4 normal; 5-9 mild; 10-14 moderate; 15-21 severe): 0 Source: Developed by Drs. Kenrick Murreita, Coni Hernandez, Brien Byers and colleagues, with an educational beverley from [employer]. Physical exam (Primary Care) Vital Signs: Last Vital Signs Pulse 94 10/02/24 11:11 BP 134/70 10/02/24 11:11 Pulse Ox 95 10/02/24 11:11 Oxygen Delivery Method Room Air 10/02/24 11:11 BMI result Body Mass Index 43.1 Tobacco/Smoking Status: Tobacco use Status Tobacco use date assessed 10/02/24 10/02/24 11:12 Patient Tobacco Use Status Never used Tobacco 10/02/24 11:12 e-Cigarette/Vaping Use Never Used 10/02/24 11:12 PHQ-9: PHQ-9 Score PHQ-9: Total score 0 10/02/24 11:42 Depression Screening Interpretation: Negative Thrive Assessment: Date of Thrive Assessment Date Thrive assessed 09/25/24 10/02/24 11:12 Currently or been in a relationship where the following occur: No concerns reported Coding Level of Care Code Est Pt Level 4 (15741) Complex EM visit Add On G2211 Diagnoses Chronic pain of both knees M25.561; M25.562; G89.29 Chronicity: chronic Dyshidrotic eczema L30.1 Crohn's disease without complication, unspecified gastrointestinal tract location K50.90 Gastrointestinal tract location: unspecified location Digestive disease complication type: without complication Chronic systolic congestive heart failure I50.22 Heart failure type: systolic Heart failure chronicity: chronic Assessment & Plan Assessment & Plan (1) Knee pain, bilateral: Code(s): M25.561 - Pain in right knee; M25.562 - Pain in left knee Category: Medical Qualifiers: Chronicity: chronic Qualified Code(s): M25.561 - Pain in right knee; M25.562 - Pain in left knee; G89.29 - Other chronic pain Plan: stable, tramadol prn (2) Dyshidrotic eczema: Code(s): L30.1 - Dyshidrosis [pompholyx] Category: Medical Plan: Oral prednisone. continue prn topical (3) Crohn's disease: Comment: Follows with Dr. Andrea Code(s): K50.90 - Crohn's disease, unspecified, without complications Category: Medical Qualifiers: Gastrointestinal tract location: unspecified location Digestive disease complication type: without complication Qualified Code(s): K50.90 - Crohn's disease, unspecified, without complications Plan: continue GI follow up (4) Congestive heart failure (CHF): Code(s): I50.9 - Heart failure, unspecified Category: Medical Qualifiers: Heart failure type: systolic Heart failure chronicity: chronic Qualified Code(s): I50.22 - Chronic systolic (congestive) heart failure Plan: Euvolemic. continue cardiology follow up Orders: Orders Complete Blood Count Auto Diff 10/02/24 D50.9 - Iron deficiency anemia, unspecified, I50.22 - Chronic systolic (congestive) heart failure, M25.561 - Pain in right knee, M25.562 - Pain in left knee Comprehensive Met. Panel 10/02/24 D50.9 - Iron deficiency anemia, unspecified, I50.22 - Chronic systolic (congestive) heart failure, M25.561 - Pain in right knee, M25.562 - Pain in left knee Lipid Panel 10/02/24 D50.9 - Iron deficiency anemia, unspecified, I50.22 - Chronic systolic (congestive) heart failure, M25.561 - Pain in right knee, M25.562 - Pain in left knee TSH reflex Free T4 10/02/24 D50.9 - Iron deficiency anemia, unspecified, I50.22 - Chronic systolic (congestive) heart failure, M25.561 - Pain in right knee, M25.562 - Pain in left knee Medications: New tramadol 50 mg PO Q8H PRN 21 tabs 0RF pain prednisone 40 mg (2 x 20 mg) PO DAILY 10 tabs 0RF 5 days Changed From ferrous sulfate 325 mg PO DAILY 30 tabs 0RF To ferrous sulfate (FeroSul) 325 mg PO Q OTHER DAY 45 tabs 3RF Refilled bumetanide 1 mg PO DAILY 90 tabs 3RF
== END 2024-10-02 12:08 | disposition home or self-care (01) ==
PROVIDERS: PCP Internal Medicine; Visit Provider Internal Medicine
DX: M25.561 Pain in right knee (principal); K50.90 Crohn's disease, unspecified, without complications; I50.22 Chronic systolic (congestive) heart failure; M25.562 Pain in left knee; G89.29 Other chronic pain; L30.1 Dyshidrosis [pompholyx]

== ENCOUNTER → 2024-10-02 11:09 | Outpatient (BNVA) | payer MEDICARE, SELFPAY | PROVIDERS: Visit Provider Internal Medicine | DX: M25.561 Pain in right knee (principal); M25.562 Pain in left knee; G89.29 Other chronic pain; L30.1 Dyshidrosis [pompholyx]; K50.90 Crohn's disease, unspecified, without complications; I11.0 Hypertensive heart disease with heart failure; I50.22 Chronic systolic (congestive) heart failure | CPT/HCPCS: 99212 ==

== ENCOUNTER 2024-11-22 13:22 | Outpatient (REF) | payer MEDICARE, SELFPAY ==
--- NOTE | ~2024-11-22 | MM_ITS ---
EXAMINATION: DXA BONE DENSITY AXIAL HISTORY: Estrogen deficiency TECHNIQUE: [employer] Dual energy absorptiometry (DEXA) of the lumbar spine, total left hip, and femoral neck was performed. COMPARISON: Comparison is made with the prior examination dated 10/13/2022. FINDINGS: The bone mineral density of the lumbar spine is 1.438 with a T-score of 2.2, and a Z-score of 2.8. This represents a BMD change of -5.8% compared to the prior exam. This is statistically significant. The bone mineral density of the left total hip is 0.798 with a T-score of -1.7, and a Z-score of -0.4. This represents BMD change of -7.2% compared to the prior exam. This is statistically significant. The bone mineral density of the left femoral neck is 0.783 with a T-score of -1.8, and a Z-score of -0.4. This represents BMD change of -2.0% compared to the prior exam. FRACTURE RISK: The FRAX index suggests a ten year probability of major osteoporotic fracture of 19.5%, and of hip fracture 5.9%. MM/XR DEXA axial skeleton IMPRESSION: Based on bone mineral density, and according to World Health Organization (WHO) criteria, the diagnosis is consistent with osteopenia. All bone density values are in grams per centimeter squared (g/cm2). Statistically, 68% of repeat scans fall within 1 SD (+/- 0.010 g/cm2 for AP spine L1-L4) and 1 SD (+/- 0.012 g/cm2 for femur total) FRAX is a trademark of the [employer]'s [employer] for Metabolic Bone Disease, a World Health Organization (WHO) Collaborating Center. Electronically signed by: Kenrick Melo MD 11/27/2024 11:52 AM [facility]
--- OUTSIDE RECORDS SUMMARY | 2024-11-22 15:30 | XMS_ITS | Encounter Summary ---
Author Organization [facility] Address [address] [place] [address] Care Team Providers Care Waiter/Waitress Informal Name Role Phone Megan Bolanos MD Primary Care Provider [phone] Encounter Details Date Type Department Care Team (Late st Contact Info) Description 11/14/2024 8:30 PM EST Ancillary Procedure [facility] [address] [facility] [address] [place] [id number] Social History Tobacco Use Types Packs/Day Years Used Date Smoking Tobacco: Never Smokeless Tobacco: Never Alcohol Use Standard Drinks/Week Comments Yes 0 (1 standard drink = 0.6 oz pur e alcohol) a drink a week Sex and Gender Information Value Date Recorded Sex Assigned at Not on file Gender Identity Not on file Sexual Orientation Not on file Job Start Date Occupation Industry Not on file Not on file Not on file documented as of this encounter Plan of Treatment Upcoming Encounters Date Type Department Care Team (Late st Contact Info) Description 01/22/2025 11:00 AM EDT Ancillary Procedure [facility] [address] [place] [id number] 04/30/2025 1:10 PM EDT Office Visit [facility] Cardiology [facility] [address] [place] [address] Sarbjit Nunes NP [address] [place] [address] [address] [place] [address] 06/06/2025 1:30 PM EDT Ancillary Procedure [facility] [address] [place] [address] documented as of this encounter Procedures Procedure Name Priority Date/Time Associated Diagnosis Comments CARDIAC DEVICE CHECK- REMOTE- MURJ Routine 11/14/2024 8:25 PM EST documented in this encounter Results * Cardiac device check - Remote- MURJ (11/14/2024 8:25 PM EST) Date Time Interrogation Session [id number] CV DEVICE CHECK Type Interrogation Session Remote CV DEVICE CHECK Implantable Pulse Generator Body Component Engineer MDT CV DEVICE CHECK Implantable Pulse Generator Type LIVESTOCK YARD SUPERVISOR-D CV DEVICE CHECK Implantable Pulse Generator Model Claria MRI Quad CRTD [id number] CV DEVICE CHECK Implantable Pulse Generator Serial Number [id number] CV DEVICE CHECK Implantable Pulse Generator Implant Date [id number] CV DEVICE CHECK Battery Remaining Longevity 102.0 CV DEVICE CHECK Battery Voltage 3.010 CV D EVICE CHECK Battery RECOVERY ANALYST Trigger 2.727 CV DEVICE CHECK Battery Status Middle of Service CV DEVICE CHECK Capacitor Charge Time 3.673 CV DEVICE CHECK Medardo Statistic RA Percent Paced 10.91 CV DEVICE CHECK Medardo Statistic RV Percent Paced 5.46 CV DEVICE CHECK LIVESTOCK YARD SUPERVISOR Statistic LV Percent Paced 97.10 CV DEVICE CHECK LIVESTOCK YARD SUPERVISOR Statistic LIVESTOCK YARD SUPERVISOR Percent Paced 5.41 CV DEVICE CHECK Atrial Tachy Statistic AT/AF [place] Percent 0.00 CV DEVICE CHECK Lead Channel Sensing Intrinsic Amplitude 3.125 CV DEVICE CHECK Lead Channel Setting Sensing Sensitivity 0.30 CV DEVICE CHECK Lead Channel Impedance Value 399 CV DEVICE CHECK Lead Channel Pacing Threshold Amplitude 0.500 CV DEVICE CHECK Lead Channel Pacing Threshold Pulse Width 0.4 CV DEVICE CHECK Lead Channel RA Pacing Threshold Date 2024-11-09 CV DEVICE CHECK Lead Channel Setting Pacing Amplitude 1.500 CV DEVICE CHECK Lead Channel Setting Pacing Pulse Width 0.4 CV DEVICE CHECK Lead Channel Sensing Intrinsic Amplitude 7.500 CV DEVICE CHECK Lead Channel Setting Sensing Sensitivity 0.30 CV DEVICE CHECK Lead Channel Impedance Value 361 CV DEVICE CHECK Lead Channel Pacing Threshold Amplitude 0.750 CV DEVICE CHECK Lead Channel Pacing Threshold Pulse Width 0.4 CV DEVICE CHECK Lead Channel RV Pacing Threshold Date 2024-11-09 CV DEVICE CHECK Lead Channel Setting Pacing Amplitude 2.000 CV DEVICE CHECK Lead Channel Setting Pacing Pulse Width 0.4 CV DEVICE CHECK Lead Channel Impedance Value 703 CV DEVICE CHECK Lead Channel Pacing Threshold Amplitude 1.000 CV DEVICE CHECK Lead Channel Pacing Threshold Pulse Width 0.4 CV DEVICE CHECK Lead Channel Pacing Threshold Date 2024-11-09 CV DEVICE CHECK Lead Channel Setting Pacing Amplitude 1.500 CV DEVICE CHECK Lead Channel Setting Pacing Pulse Width 0.4 CV DEVICE CHECK Medardo Setting Mode (NBG Code) DDD CV DEVICE CHECK Ventricular chambers paced during LIVESTOCK YARD SUPERVISOR pacing. LVOnly CV DEVICE CHECK Medardo Setting Lower Rate Limit 60 CV DEVICE CHECK Medardo Setting AT Mode Switch Rate 171 CV DEVICE CHECK Medardo Setting Maximum Tracking Rate 130 CV DEVICE CHECK Medardo Setting Maximum Sensor Rate 130 CV DEVICE CHECK Medardo Setting PAV Delay 130 CV DEVICE CHECK Meadrdo Setting EMRCY Delay 100 CV DEVICE CHECK Therapy Statistic Recent Shocks Delivered 0 CV DEVICE CHECK Therapy Statistic Recent Shocks Aborted 0 CV DEVICE CHECK Therapy Statistic Recent ATP Delivered 0 CV DEVICE CHECK RV HV Impedance 90 CV D EVICE CHECK Zone Setting Type Category AT/AF CV DEVICE CHECK Rate 171 CV DEVICE CHECK Therapies All Rx Off CV DEVICE CHECK Zone Setting Status Monitor CV DEVICE CHECK Zone ID 2 CV DEVICE CHECK Zone Setting Type Category VF CV DEVICE CHECK Rate 200 CV DEVICE CHECK Therapies ATP During Charging, 35Jx6 CV DEVICE CHECK Zone Setting Status On CV DEVICE CHECK Zone ID 3 CV DEVICE CHECK Zone Setting Type Category VT CV DEVICE CHECK Zone Setting Status Off CV DEVICE CHECK Zone ID 4 CV DEVICE CHECK Zone Setting Type Category VT CV DEVICE CHECK Zone Setting Status Off CV DEVICE CHECK Zone ID 5 CV DEVICE CHECK Zone Setting Type Category VT CV DEVICE CHECK Rate 150 CV DEVICE CHECK Rate 167 CV DEVICE CHECK Zone Setting Status ENABLED CV DEVICE CHECK Zone ID 6 CV DEVICE CHECK Date of Service 2024-12-16 CV DEVICE CHECK Anatomical Region Laterality Modality Device Interroga tion 11/09/2024 3:35 AM EST Impressions 11/14/2024 8:06 AM EST Heart Failure Diagnostic: Stable * Heart failure diagnostics assessed through the device * Status: Stable * No overt HF present Narrative Procedure Note Cristel Manning MD - 11/14/2024 IMPRESSION: Heart Failure Diagnostic: Stable * Heart failure diagnostics assessed through the device * Status: Stable * No overt HF present Cristel Manning MD CV IMPLANTABLE CAR DIAC DEVICE PROCEDURES documented in this encounter Visit Diagnoses Not on filedocumented in this encounter Care Teams Waiter/Waitress Informal Relationship Specialty Start Date End Date Megan Bolanos MD PCP - General Endocrinology 11/10/24 documented as of this encounter
--- OUTSIDE RECORDS SUMMARY | 2024-11-22 15:30 | XMS_ITS | Encounter Summary ---
Author Organization [facility] Address [address] [place] [address] Care Team Providers Care Library Clerk Name Role Phone Megan Bolanos MD Primary Care Provider [phone] Reason for Visit * Reason Comments Follow-up Encounter Details Date Type Department Care Team (Late st Contact Info) Description 11/10/2024 2:40 PM EST [facility] [address] [place] [phone] Sarbjit Nunes NP [address] [place] [address] Dr [address] [place], [place] [address] Social History Tobacco Use Types Packs/Day Years [...] on file documented as of this encounter Last Filed Vital Signs Vital Sign Reading Time Taken Comments Blood Pressure 100/60 11/10/2024 2:39 PM EST Pulse 101 11/10/2024 2:39 PM EST Temperature - - Respiratory Rate - - Oxygen Saturation 94% 11/10/2024 2:39 PM EST Inhaled Oxygen Concentration - - Weight 108 kg (237 lb 12.8 oz) 11/10/2024 2:39 P M EST Height 160 cm (5' 3 ) 11/10/2024 2:39 PM EST Body Mass Index 42.12 11/10/2024 2:39 PM EST documented in this encounter Plan of Treatment Upcoming Encounters Date Type Department Care Team (Late st Contact Info) Description 01/22/2025 11:00 AM EDT Ancillary Procedure [facility] Card[facility] [address] [place] [address] 04/30/2025 1:10 PM EDT Office Visit [facility] Card[facility] [address] [place] [address] Sarbjit Nunes NP [address] [place] [address] Dr [address] [place] [address] 06/06/2025 1:30 PM EDT Ancillary Procedure [facility] [address] [facility] [address] [place] [address] documented as of this encounter Visit Diagnoses Not on filedocumented in this encounter Discontinued Medications Medication Sig Discontinue Reason Start Date End Da te metoprolol succinate (TOPROL-XL) 50 mg 24 hr tablet TAKE 1 TABLET DAILY Formulary change 12/22/2023 11/10/2024 documented as of this encounter Historical Medications * This list may reflect changes made after this encounter. Medication Sig Dispensed Refills Start Date End Date KRILL OIL ORAL Take by mouth. FERROUS SULFATE ORAL Take by mouth 3 (three) times a week. 3 times a week added in this encounter Care Teams Library Clerk Relationship Specialty Start Date End Date Megan Bolanos MD PCP - General Endocrinology 11/10/24 documented as of this encounter
--- OUTSIDE RECORDS SUMMARY | 2024-11-22 15:30 | XMS_ITS | Clinical Summary ---
Author Organization [address] [place] [address] Address [address] [place] [address] Phone Care Team Providers Care [employer] Travel Counselor Name Role Phone Megan Bolanos MD Primary Care Provider [phone] Allergies Active Allergy Reactions Criticality Noted Date Comments Aspirin 07/20/2006 Has chromes disease and aspirin makes pt bleed a lot Penicillins 07/07/2022 Other Reaction(s): Rash/Dermatitis Medications Medication Sig Dispensed Refills Start Date End Date Status docosahexaenoic acid/epa (FISH OIL ORAL) daily. Active FOLIC ACID ORAL Take 1 mg by mouth 1 (one) time each day. Active magnesium oxide (MAG-OX) 400 mg magnesium tablet Take by mouth daily. Active acetaminophen (TYLENOL 8 HOUR) 650 mg 8 hr tablet Take 2 Tablets by mouth 2 times daily. Active amiodarone (PACERONE) 200 mg tablet Take 1 Tablet by mouth daily. 05/09/2024 Active apixaban (ELIQUIS) 5 mg tablet Take 5 mg by mouth 2 times daily. 05/09/2024 Active bumetanide (BUMEX) 1 mg tablet Take 1 mg by mouth daily. Active cholecalciferol (VITAMIN D-3) 50 mcg (2,000 unit) tablet 1 tablet once a day, then off for 1 week Active metoprolol succinate (TOPROL-XL) 25 mg 24 hr tablet Take 3 Tablets by mouth daily for 360 days. 05/09/2024 05/04/2025 Active esomeprazole (NexIUM) [address] capsule 1 CAPSULE DAILY Active rosuvastatin (CRESTOR) 10 mg tablet Take 1 Tablet by mouth daily. Active sacubitriL-valsart an (Entresto) 49-51 mg per tablet Take 49-51 mg by mouth 2 times daily. 08/10/2024 Active spironolactone (ALDACTONE) 25 mg tablet TAKE 1 TABLET DAILY 07/14/2024 Active sulfaSALAzine (Azulfidine) 500 mg tablet Take 1,000 mg by mouth 2 times daily. Active FERROUS SULFATE ORAL Take by mouth 3 (three) times a week. 3 times a week Active KRILL OIL ORAL Take by mouth. Active metoprolol succinate (TOPROL-XL) 50 mg 24 hr tablet TAKE 1 TABLET DAILY 12/22/2023 11/10/2024 Discontinued( Formulary change) Active Problems Problem Noted Date Diagnosed Date A-fib 01/25/2024 Overview (09/18/2024): Last Assessment & Plan: Paroxysmal atrial fibrillation, noted following device placement. Successfully suppressed with amiodarone. No evidence of recurrent atrial arrhythmias on device interrogation. Continue Eliquis for thromboembolic prophylaxis. SOB (shortness of breath) 06/09/2023 Tachycardia 06/09/2023 Overview (09/18/2024): Last Assessment & Plan: Atrial tachycardia/atrial flutter suppressed with amiodarone. I suspect that the new onset arrhythmia may have been related to the device procedure. She is currently on 400 mg a day of amiodarone. We will reduce this to 200 mg a day for 3 months then she will stop the medication. We will continue with remote device interrogation which will determine if she has recurrent atrial arrhythmias. Cardiomyopathy 06/26/2022 Overview (09/18/2024): Last Assessment & Plan: Nonischemic cardiomyopathy, NYHA I class symptoms. Status post recent FIELD EDUCATION COORDINATOR-D. Recent echo disclosed improved LV systolic function. I reviewed the device interrogation which confirms that she has biventricular pacing at very high rate. She is appropriate medical therapy which includes metoprolol, Entresto and Aldactone. Symptoms are controlled on current dose of Bumex. Blood pressures well controlled. Dyslipidemia 06/26/2022 Hypertension 06/26/2022 Left bundle branch block 06/26/2022 Overview (09/18/2024): Left bundle branch block Obesity 06/26/2022 Encounters Date Type Department Care Team Description 11/14/2024 8:30 PM EST Ancillary Procedure [facility] [address] [place] [address] 11/10/2024 2:40 PM EST Office Visit [facility] [address] [facility] [address] [place] [address] Sarbjit Nunes NP 10/19/2024 9:40 AM EST Ancillary Procedure [facility] [address] [place] [address] 10/19/2024 Telephone [facility] [address] [place] [address] Naomie Anglin PA 10/09/2024 8:30 PM EST Ancillary Procedure [facility] [address] [place] [address] 09/14/2024 3:25 PM EST Ancillary Procedure [facility] [address] [place] [address] from Last 3 Months Surgical History Surgery Date Site/Laterality Comments VAGINAL DELIVERY PROCEDURE: [facility] VAGINAL DELIVERY ONLY; COMMENT: x2 OTHER SURGICAL HISTORY 07/2022 PROCEDURE: DIAGNOSTIC MAMMOGRAM CARDIAC CATHETERIZATION 06/2022 PROCEDURE: HISTORICAL CARDIAC CATH COLONOSCOPY PROCEDURE: HISTORICAL COLONOSCOPY OTHER SURGICAL HISTORY 07/2020 Right PROCEDURE: [facility] ANES ARTHROSCOPIC TOTAL SHOULDER REPLACEMENT OTHER SURGICAL HISTORY 07/2019 Left PROCEDURE: [facility] ANES ARTHROSCOPIC TOTAL SHOULDER REPLACEMENT CATARACT EXTRACTION 03/2016 PROCEDURE: HISTORICAL CATARACT REMOVAL OTHER SURGICAL HISTORY PROCEDURE: HISTORY OTHER; COMMENT: Childbirth x2 Medical History Medical History Date Comments Regional enteritis of unspecified site DX:Regional enteritis of unspecified site Reflux esophagitis DX:Reflux eso phagitis; COMMENT: acid Lipidoses DX:Lipidoses Essential hypertension, benign D X:Essential hypertension, benign Generalized osteoarthrosis, unspecified site DX:Generalized osteoarthrosi s, unspecified site Arthritis DX:Arthritis Crohn's disease (CMS/HCC) 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) Eczema DX:Eczema GERD (gastroesophageal reflux disease) DX:GERD (gastroesophageal reflux disease) Hypokalemia DX:Hypokalemia Leg swelling DX:Leg swelling Morbid obesity (CMS/HCC) DX:Morb id obesity (HCC) Polymyalgia rheumatica (CMS/HCC) DX:Polymyalgia rheumatica (HCC) Severe obesity (CMS/HCC) DX:Melissa re obesity (HCC) Family History Medical History Relation Name Comments Diabetes Father Glaucoma Father Other: aorta anerysm Father d at age 89 Heart failure Mother Relation Name Status Comments Father Maternal Grandfather Maternal Grandmother Mother Alive Paternal Grandfather Paternal Grandmother Sister Alive Son 1 Alive Son 2 Alive Social History Tobacco Use Types Packs/Day Years [...] file Not on file Not on file Obstetrics History Last Filed Vital Signs Vital Sign Reading [...] Mass Index 42.12 11/10/2024 2:39 PM EST Plan of Treatment Upcoming Encounters Date Type Department Care Team (Late st Contact Info) Description 01/22/2025 11:00 AM EDT Ancillary Procedure [facility] - [address] [place] [address] 04/30/2025 1:10 PM EDT Office Visit [facility] [place] [address] [place] [phone] Sarbjit Nunes NP [address] [place] [address] [place] [address] 06/06/2025 1:30 PM EDT Ancillary Procedure [facility] - [address] [place] [phone] Health Maintenance Due Date Last Done Comments DTaP,Tdap,and Td Vaccines (1 - Tdap) 1964 Zoster Vaccines (2 of 3) 10/11/2013 08/16/2013 Cholesterol Screening (Lipid Panel) 10/04/2022 Depression Screening 10/04/2022 Falls Risk Assessment 10/04/2022 Medicare Annual Wellness Visit 10/04/2022 Osteoporosis Screening (Bone Density Screening) 10/04/2022 Social Influencers of Health Screening 10/04/2022 Hypertension/CHF/CAD Annual BMP Blood Test 10/23/2025 10/23/2024 Pneumococcal Vaccine: 65+ Years Completed 09/04/2023, 06/05/2019 Influenza Vaccine Completed 08/23/2024, , 08/12/2022, Additional history exists RSV Immunization Patients 60+ Years Old Completed 08/23/2024 COVID-19 Vaccine Completed 09/14/2024, 03/2023, 07/23/2022, Additional history exists HIB Vaccines Aged Out No longer eligi ble based on patient's age to complete this topic HPV Vaccines Aged Out No longer eligi ble based on patient's age to complete this topic Hepatitis A Vaccines Aged Out No long er eligible based on patient's age to complete this topic Hepatitis B Vaccines Aged Out No long er eligible based on patient's age to complete this topic IPV Vaccines Aged Out No longer eligi ble based on patient's age to complete this topic MMR Vaccines Aged Out No longer eligi ble based on patient's age to complete this topic Meningococcal ACWY Vaccine Aged Out N o longer eligible based on patient's age to complete this topic RSV Immunization Patients Under 20 months Aged Out No longer eligible based on patient's age to complete this topic Varicella Vaccines Aged Out No longer eligible based on patient's age to complete this topic Medical Devices Implanted Type Area Ring Cutter Lathe Operator Device Identifier Shelf Expiration Date Model / Serial / Lot Medt-Card Renita Mri Quad Crtd [id number] Implanted:04/24 (Quantity not on file) Cardiac FIELD EDUCATION COORDINATOR-D ICD [employer] - CARDIAC RHYTH-CRDM RENITA MRI QUAD CRTD [id number] / [id number] / Procedures Procedure Name Priority Date/Time Associated Diagnosis Comments CARDIAC DEVICE CHECK- REMOTE- MURJ Routine 11/14/2024 8:25 PM EST BASIC METABOLIC PANEL Routine 10/23/2024 12:25 PM EST Dilated cardiomyopathy (CMS/HCC) CARDIAC DEVICE CHECK- REMOTE- MURJ Routine 10/19/2024 9:39 AM EST CARDIAC DEVICE CHECK- REMOTE- MURJ Routine 10/09/2024 8:26 PM EST CARDIAC DEVICE CHECK- REMOTE- MURJ Routine 09/14/2024 3:21 PM EST from Last 3 Months Results * Cardiac device check - Remote- MURJ (11/14/2024 8:25 PM EST) Only the most recent of4 resultswithin the time period is included. Date Time Interrogation Session [id number] CV DEVICE CHECK Type Interrogation Session Remote CV DEVICE CHECK Implantable Pulse Generator Ring Cutter Lathe Operator MDT CV DEVICE CHECK Implantable Pulse Generator Type FIELD EDUCATION COORDINATOR-D CV DEVICE CHECK Implantable Pulse Generator Model Renita MRI Quad CRTD [id number] CV DEVICE CHECK Implantable Pulse Generator Serial Number [id number] CV DEVICE CHECK Implantable Pulse Generator Implant Date 20230510 CV DEVICE CHECK Battery Remaining Longevity 102.0 CV DEVICE CHECK Battery Voltage 3.010 CV D EVICE CHECK Battery JUDICIAL ASSISTANT Trigger 2.727 CV DEVICE CHECK Battery Status Middle of Service CV DEVICE CHECK Capacitor Charge Time 3.673 CV DEVICE CHECK Medardo Statistic RA Percent Paced 10.91 CV DEVICE CHECK Medardo Statistic RV Percent Paced 5.46 CV DEVICE CHECK FIELD EDUCATION COORDINATOR Statistic LV Percent Paced 97.10 CV DEVICE CHECK FIELD EDUCATION COORDINATOR Statistic FIELD EDUCATION COORDINATOR Percent Paced 5.41 CV DEVICE CHECK Atrial Tachy Statistic AT/AF [place] Percent 0.00 CV DEVICE CHECK Lead Channel [...] CV DEVICE CHECK Ventricular chambers paced during FIELD EDUCATION COORDINATOR pacing. LVOnly CV DEVICE CHECK Medardo Setting Lower Rate Limit 60 CV DEVICE CHECK Medardo Setting AT Mode Switch Rate 171 CV DEVICE CHECK Medrado Setting Maximum Tracking Rate 130 CV DEVICE CHECK Medardo Setting Maximum Sensor Rate 130 CV DEVICE CHECK Medardo Setting PAV Delay 130 CV DEVICE CHECK Medardo Setting [facility] Delay 100 CV DEVICE CHECK Therapy Statistic [...] MD CV IMPLANTABLE CAR DIAC DEVICE PROCEDURES * (ABNORMAL) Basic metabolic panel (10/23/2024 12:25 PM EST) Glucose 101(H) 70 - 99 mg/dL [facility] Blood Urea Nitrogen (BUN) 14 8 - 27 mg/dL [facility] Creatinine 0.73 0.57 - 1.00 mg/dL [facility] 1 eGFR 83 >59 mL/min/1.7 3 [facility] 1 BUN/Creatinine Ratio 19 12 - 28 [facility] 1 Sodium 141 134 - 144 mmol/L [facility] 1 Potassium 4.1 3.5 - 5.2 mmol/L [facility] 1 Chloride 106 96 - 106 mmol/L [facility] 1 Carbon Dioxide 21 20 - 29 mmol/L [facility] 1 Calcium 8.7 8.7 - 10.3 mg/dL [facility] 1 Blood Venous blood specimen / Unknown 10/23/2024 12:25 PM EST 10/23/2024 Narrative [facility] 1 - 10/24/2024 7:06 AM EST Performed at: ??01 - [facility] [address] ??[id number] News Correspondent: Eve De Santiago MD, Phone: ??[phone] Silvio Hunter MD LAB BLOOD ORDERABLES [facility] 1 from Last 3 Months Care Teams Auto [employer] Travel Counselor Relationship Specialty Start Date End Date Megan Bolanos MD PCP - General Endocrinology 11/10/24
== END 2024-11-22 13:23 | disposition home or self-care (01) ==
LOC: HO.MAMMO 13:22
PROVIDERS: PCP Internal Medicine; Visit Provider Student in an Organized Health Care Education/Training Program
DX: Z13.820 Encounter for screening for osteoporosis (principal); M85.89 Other specified disorders of bone density and structure, multiple sites
CPT/HCPCS: 77080

== ENCOUNTER → 2024-11-22 13:30 | Outpatient (BNV) | payer MEDICARE, SELFPAY | PROVIDERS: PCP Internal Medicine; Visit Provider Radiology Diagnostic Radiology | DX: E28.39 Other primary ovarian failure (principal) | CPT/HCPCS: 77080 ==

== ENCOUNTER 2024-12-15 11:11 | Outpatient (REF) | payer MEDICARE, SELFPAY ==
--- OUTSIDE RECORDS SUMMARY | 2024-12-15 12:21 | XMS_ITS | Encounter Summary ---
Author Organization [facility] Address [address] [place] [address] Care Team Providers Care Pathology Secretary Name Role Phone Megan Bolanos MD Primary Care Provider [phone] Encounter Details Date Type Department Care Team (Late st Contact Info) Description 12/13/2024 11:15 AM EST Ancillary Procedure [facility] Cardiology [facility] [address] [place] [phone] Arrived Social History Tobacco Use Types Packs/Day Years Used Date Smoking Tobacco: Never Smokeless Tobacco: Never Alcohol Use Standard Drinks/Week Comments Yes 0 (1 standard drink = 0.6 oz pur e alcohol) a drink a week Comments Unknown Sex and Gender Information Value Date Recorded Sex Assigned at Not on file Legal Sex Female 6:47 AM EST Gender Identity Not on file Sexual Orientation Not on file documented as of this encounter Plan of Treatment Upcoming Encounters Date Type Department Care Team (Late st Contact Info) Description 01/22/2025 11:00 AM EDT Ancillary Procedure [facility] [address] [place] [address] 04/30/2025 1:10 PM EDT Office Visit [facility] Cardiology [facility] [address] [place] [address] Sarbjit Nunes NP [address] [place] [address] [address] [place] [address] 06/06/2025 1:30 PM EDT Ancillary Procedure [facility] - [address] [place] [address] documented as of this encounter Procedures Procedure Name Priority Date/Time Associated Diagnosis Comments CARDIAC DEVICE CHECK- REMOTE- MURJ Routine 12/13/2024 11:14 AM EST documented in this encounter Results * Cardiac device check - Remote- MURJ (12/13/2024 11:14 AM EST) Date Time Interrogation Session [id number] CV DEVICE CHECK Type Interrogation Session Remote CV DEVICE CHECK Implantable Pulse Generator Armature Coil Winder MDT CV DEVICE CHECK Implantable Pulse Generator Type SHRIMPER-D CV DEVICE CHECK Implantable Pulse Generator Model Claria MRI Quad CRTD [id number] CV DEVICE CHECK Implantable Pulse Generator Serial Number [id number] CV DEVICE CHECK Implantable Pulse Generator Implant Date 20230510 CV DEVICE CHECK Battery Remaining Longevity 100.0 CV DEVICE CHECK Battery Voltage 3.000 CV D EVICE CHECK Battery CONTINUOUS IMPROVEMENT CONSULTANT Trigger 2.727 CV DEVICE CHECK Battery Status Middle of Service CV DEVICE CHECK Capacitor Charge Time 3.663 CV DEVICE CHECK Medardo Statistic RA Percent Paced 12.28 CV DEVICE CHECK Medardo Statistic RV Percent Paced 5.20 CV DEVICE CHECK SHRIMPER Statistic LV Percent Paced 97.32 CV DEVICE CHECK SHRIMPER Statistic SHRIMPER Percent Paced 5.15 CV DEVICE CHECK Atrial Tachy Statistic AT/AF [place] Percent 0.00 CV DEVICE CHECK Lead Channel Sensing Intrinsic Amplitude 3.000 CV DEVICE CHECK Lead Channel Setting Sensing Sensitivity 0.30 CV DEVICE CHECK Lead Channel Impedance Value 456 CV DEVICE CHECK Lead Channel Pacing Threshold Amplitude 0.500 CV DEVICE CHECK Lead Channel Pacing Threshold Pulse Width 0.4 CV DEVICE CHECK Lead Channel RA Pacing Threshold Date 2024-12-10 CV DEVICE CHECK Lead Channel Setting Pacing Amplitude 1.500 CV DEVICE CHECK Lead Channel Setting Pacing Pulse Width 0.4 CV DEVICE CHECK Lead Channel Sensing Intrinsic Amplitude 8.500 CV DEVICE CHECK Lead Channel Setting Sensing Sensitivity 0.30 CV DEVICE CHECK Lead Channel Impedance Value 399 CV DEVICE CHECK Lead Channel Pacing Threshold Amplitude 0.875 CV DEVICE CHECK Lead Channel Pacing Threshold Pulse Width 0.4 CV DEVICE CHECK Lead Channel RV Pacing Threshold Date 2024-12-10 CV DEVICE CHECK Lead Channel Setting Pacing Amplitude 2.000 CV DEVICE CHECK Lead Channel Setting Pacing Pulse Width 0.4 CV DEVICE CHECK Lead Channel Impedance Value 760 CV DEVICE CHECK Lead Channel Pacing Threshold Amplitude 1.125 CV DEVICE CHECK Lead Channel Pacing Threshold Pulse Width 0.4 CV DEVICE CHECK Lead Channel Pacing Threshold Date 2024-12-10 CV DEVICE CHECK Lead Channel Setting Pacing Amplitude 1.750 CV DEVICE CHECK Lead Channel Setting Pacing Pulse Width 0.4 CV DEVICE CHECK Medardo Setting Mode (NBG Code) DDD CV DEVICE CHECK Ventricular chambers paced during SHRIMPER pacing. LVOnly CV DEVICE CHECK Medardo Setting Lower Rate Limit 60 CV DEVICE CHECK Medardo Setting AT Mode Switch Rate 171 CV DEVICE CHECK Medardo Setting Maximum Tracking Rate 130 CV DEVICE CHECK Medardo Setting Maximum Sensor Rate 130 CV DEVICE CHECK Medardo Setting PAV Delay 150 CV DEVICE CHECK Medardo Setting MERCY Delay 100 CV DEVICE CHECK Therapy Statistic Recent Shocks Delivered 0 CV DEVICE CHECK Therapy Statistic Recent Shocks Aborted 0 CV DEVICE CHECK Therapy Statistic Recent ATP Delivered 0 CV DEVICE CHECK RV HV Impedance 96 CV D EVICE CHECK Zone Setting Type [...] Anatomical Region Laterality Modality Device Interroga tion 12/10/2024 3:36 AM EST Impressions 12/13/2024 9:31 AM EST Heart Failure Diagnostic: Stable * Heart failure diagnostics assessed through the device * Status: Stable * No overt HF present Narrative Procedure Note Cristel Manning MD - 12/13/2024 IMPRESSION: Heart Failure Diagnostic: Stable * Heart failure diagnostics assessed through the device * Status: Stable * No overt HF present us Cristel Manning MD CV IMPLANTABLE CARDIAC DEV ICE PROCEDURES Final Result documented in this encounter Visit Diagnoses Not on filedocumented in this encounter Care Teams Pathology Secretary Relationship Specialty Start Date End Date Megan Bolanos MD PCP - General Endocrinology 11/10/24 documented as of this encounter
--- OUTSIDE RECORDS SUMMARY | 2024-12-15 12:21 | XMS_ITS | Encounter Summary ---
Author Organization [facility] Address [address] [place] [address] Care Team Providers Care Dental Appliance Fixer Name Role Phone Megan Bolanos MD Primary Care Provider [phone] Encounter Details Date Type Department Care Team (Late st Contact Info) Description 11/14/2024 8:30 PM EST Ancillary Procedure [facility] Cardiology [facility] [address] [facility] [address] [place] [id number] Social History Tobacco Use Types Packs/Day Years [...] Encounters Date Type Department Care Team (Late Contact Info) Description 01/22/2025 11:00 AM EDT Ancillary Procedure [facility] [place] [address] [place] [phone] 04/30/2025 1:10 PM EDT Office Visit [facility] Cardiology [facility] [address] [place] [address] Sarbjit Nunes NP [address] [place] [address] Dr Mccorm[address] [place] [address] 06/06/2025 1:30 PM EDT Ancillary Procedure [facility] - [address] [place] [address] documented as of this encounter Procedures Procedure Name Priority Date/Time Associated Diagnosis Comments CARDIAC DEVICE CHECK- REMOTE- MURJ Routine 11/14/2024 8:25 PM EST documented in this encounter Results * Cardiac device check - Remote- MURJ (11/14/2024 8:25 PM EST) Date Time Interrogation Session [id number] CV DEVICE CHECK Type Interrogation Session Remote CV DEVICE CHECK Implantable Pulse Generator Retail Business Manager MDT CV DEVICE CHECK Implantable Pulse Generator Type CUSTOMS AND BORDER PROTECTION INSPECTOR-D CV DEVICE CHECK Implantable Pulse Generator Model Claria MRI Quad CRTD [id number] CV DEVICE CHECK Implantable Pulse Generator Serial Number [id number] CV DEVICE CHECK Implantable Pulse Generator Implant Date 20230510 CV DEVICE CHECK Battery Remaining Longevity 102.0 CV DEVICE CHECK Battery Voltage 3.010 CV D EVICE CHECK Battery EDGE GRINDER Trigger 2.727 CV DEVICE CHECK Battery Status Middle of Service CV DEVICE CHECK Capacitor Charge Time 3.673 CV DEVICE CHECK Medardo Statistic RA Percent Paced 10.91 CV DEVICE CHECK Medardo Statistic RV Percent Paced 5.46 CV DEVICE CHECK CUSTOMS AND BORDER PROTECTION INSPECTOR Statistic LV Percent Paced 97.10 CV DEVICE CHECK CUSTOMS AND BORDER PROTECTION INSPECTOR Statistic CUSTOMS AND BORDER PROTECTION INSPECTOR Percent Paced 5.41 CV DEVICE CHECK Atrial Tachy Statistic AT/AF [place] Percent 0.00 CV DEVICE CHECK Lead Channel [...] CV DEVICE CHECK Ventricular chambers paced during CUSTOMS AND BORDER PROTECTION INSPECTOR pacing. LVOnly CV DEVICE CHECK Medardo Setting [...] HF present Cristel Manning MD CV IMPLANTABLE CARDIAC DEV ICE PROCEDURES Final Result documented in this encounter Visit Diagnoses Not on filedocumented in this encounter Care Teams Dental Appliance Fixer Relationship Specialty Start Date End Date Megan Bolanos MD PCP - General Endocrinology 11/10/24 documented as of this encounter
--- OUTSIDE RECORDS SUMMARY | 2024-12-15 12:21 | XMS_ITS | Clinical Summary ---
Author Organization [facility] Address [address] [place] [address] Phone Care Team Providers Care Sap Fico Architect Name Role Phone Megan Bolanos MD Primary Care Provider [phone] Allergies Active Allergy Reactions Criticality Noted Date Comments Aspirin 07/20/2006 Has chromes disease and aspirin makes pt bleed a lot Penicillins 07/07/2022 Other Reaction(s): Rash/Dermatitis Medications docosahexaenoic acid/epa (FISH OIL ORAL) daily. Active [...] by mouth daily for 360 days. 05/09/2024 Active esomeprazole (NexIUM) [address] capsule 1 CAPSULE DAILY Active rosuvastatin (CRESTOR) 10 mg tablet Take 1 Tablet by mouth daily. Active sacubitriL-vals lexi (Entresto) 49-51 mg per tablet Take 49-51 mg by mouth 2 times daily. 08/10/2024 Active spironolactone (ALDACTONE) 25 mg tablet TAKE 1 TABLET DAILY 07/14/2024 Active sulfaSALAzine (Azulfidine) 500 mg tablet Take 1,000 mg by mouth 2 times daily. Active FERROUS SULFATE ORAL Take by mouth 3 (three) times a week. 3 times a week Active KRILL OIL ORAL Take by mouth. Active Active Problems Problem Noted Date Diagnosed Date [...] NYHA I class symptoms. Status post recent ENGINEHOUSE BRAKEMAN-D. Recent echo disclosed improved LV systolic function. [...] Encounters Date Type Department Care Team Description 12/13/2024 11:15 AM EST Ancillary Procedure [facility] - [address] [place] [address] Arrived 11/14/2024 8:30 PM EST Ancillary Procedure [facility] - [address] [place] [address] 11/10/2024 2:40 PM EST Office Visit [facility] [address] [facility] [address] [place] [address] Sarbjit Nunes NP 10/19/2024 9:40 AM EST Ancillary Procedure [facility] - [address] [place] [address] 10/19/2024 Telephone [facility] - [address] [place] [address] Naomie Anglin PA 10/09/2024 8:30 PM EST Ancillary Procedure [facility] - [address] [place] [address] 09/14/2024 3:25 PM EST Ancillary Procedure [facility] - [address] [place] [address] from Last 3 Months Surgical History Surgery Date Site/Laterality Comments VAGINAL DELIVERY PROCEDURE: [place] VAGINAL DELIVERY ONLY; COMMENT: x2 OTHER SURGICAL HISTORY 07/2022 PROCEDURE: DIAGNOSTIC MAMMOGRAM CARDIAC CATHETERIZATION 06/2022 PROCEDURE: HISTORICAL CARDIAC CATH COLONOSCOPY PROCEDURE: HISTORICAL COLONOSCOPY OTHER SURGICAL HISTORY 07/2020 Right PROCEDURE: [place] ANES ARTHROSCOPIC TOTAL SHOULDER REPLACEMENT OTHER SURGICAL HISTORY 07/2019 Left PROCEDURE: [place] ANES ARTHROSCOPIC TOTAL SHOULDER REPLACEMENT CATARACT EXTRACTION [...] unspecified site Arthritis DX:Arthritis Crohn's disease (CMS/HCC) DX:Silk Folder hn's disease (HCC) Eczema DX:Eczema GERD (gastroesophageal [...] on file Sexual Orientation Not on file Obstetrics History Last Filed [...] Description 01/22/2025 11:00 AM EDT Ancillary Procedure [facility] - [address] [place] [address] 04/30/2025 1:10 PM EDT Office Visit [facility] [address] [place] [address] Sarbjit Nunes NP [address] [place] [address] Dr Mccorm[address] [place] [address] 06/06/2025 1:30 PM EDT Ancillary Procedure [facility] - [address] [place] [id number] Health Maintenance Due Date Last Done Comments DTaP,Tdap,and Td Vaccines (1 - Tdap) 1964 Zoster Vaccines (2 of 3) 10/11/2013 08/16/2013 Cholesterol Screening (Lipid Panel) 10/04/2022 Depression Screening 10/04/2022 Falls Risk Assessment 10/04/2022 Medicare Annual Wellness Visit 10/04/2022 Osteoporosis Screening (Bone Density Screening) 10/04/2022 Social Influencers of Health Screening 10/04/2022 Hypertension/CHF/CAD Annual BMP Blood Test 10/23/2025 10/23/2024 Pneumococcal Vaccine: 50+ Years Completed 09/04/2023, 06/05/2019 Influenza Vaccine Completed [...] patient's age to complete this topic Meningococcal B Vacine Aged Out No lo nger eligible based on patient's age to complete this topic RSV Immunization Patients Under 20 months Aged Out No longer eligible based on patient's age to complete this topic Varicella Vaccines Aged Out No longer eligible based on patient's age to complete this topic Medical Devices Implanted Type Area Winder Helper Device Identifier Shelf Expiration Date Model / Serial / Lot Medt-Card Ashely Mri Quad Crtd [id number] Implanted:04/24 (Quantity not on file) Cardiac ENGINEHOUSE BRAKEMAN-D ICD MED[employer]IC - CARDIAC RHYTH-CRDM RACQUELIA MRI QUAD CRTD [id number] / [id number] / Procedures Procedure Name Priority Date/Time Associated Diagnosis Comments CARDIAC DEVICE CHECK- REMOTE- MURJ Routine 12/13/2024 11:14 AM EST CARDIAC DEVICE CHECK- REMOTE- MURJ Routine 11/14/2024 [...] - Remote- MURJ (12/13/2024 11:14 AM EST) Only the most recent of5 resultswithin the time period is included. Date Time Interrogation Session [id number] CV DEVICE CHECK Type Interrogation Session Remote CV DEVICE CHECK Implantable Pulse Generator Winder Helper MDT CV DEVICE CHECK Implantable Pulse Generator Type ENGINEHOUSE BRAKEMAN-D CV DEVICE CHECK Implantable Pulse Generator Model Racquelia MRI Quad CRTD [id number] CV DEVICE CHECK Implantable Pulse Generator Serial Number [id number] CV DEVICE CHECK Implantable Pulse Generator Implant Date 20230510 CV DEVICE CHECK Battery Remaining Longevity 100.0 CV DEVICE CHECK Battery Voltage 3.000 CV D EVICE CHECK Battery [facility] [facility] Trigger 2.727 CV DEVICE CHECK Battery Status Middle of Service CV DEVICE CHECK Capacitor Charge Time 3.663 CV DEVICE CHECK Medardo Statistic RA Percent Paced 12.28 CV DEVICE CHECK Medardo Statistic RV Percent Paced 5.20 CV DEVICE CHECK ENGINEHOUSE BRAKEMAN Statistic LV Percent Paced 97.32 CV DEVICE CHECK ENGINEHOUSE BRAKEMAN Statistic ENGINEHOUSE BRAKEMAN Percent Paced 5.15 CV DEVICE CHECK Atrial Tachy Statistic AT/AF [place] Percent 0.00 CV DEVICE CHECK Lead Channel [...] CV DEVICE CHECK Ventricular chambers paced during ENGINEHOUSE BRAKEMAN pacing. LVOnly CV DEVICE CHECK Medardo Setting [...] IMPLANTABLE CARDIAC DEV ICE PROCEDURES Final Result * (ABNORMAL) Basic metabolic panel (10/23/2024 12:25 [...] AM EST Performed at: ??01 - [facility] [address] ??[id number] Greenhouse Instructor: Eve De Santiago MD, Phone: ??[phone] us Silvio Hunter MD LAB BLOOD ORDERABLES Final Resul t [facility] 1 from Last 3 Months Insurance [employer] MEDICARE Care Teams Sap Fico Architect Relationship Specialty Start Date End Date Megan Bolanos MD PCP - General Endocrinology 11/10/24
[2024-12-15 14:01] LABS: MANUAL DIFF FLAG NO
[2024-12-15 14:07] LABS: Basophils Absolute Auto 0.1 X10*3/uL (0.0-0.2); Basophils Percent Auto 0.9 % (0-2); Eosinophils Absolute Auto 0.2 X10*3/uL (0.0-0.4); Eosinophils Percent Auto 2.5 % (0-4); Hematocrit 40.8 % (37.0-47.0); Hemoglobin 12.9 g/dl (12.0-16.0); Imm Gran Abs Auto 0.03 X10*3/uL (0.00-0.03); Imm Gran Pct Auto 0.4 % (0.0-0.4); Lymphocytes Absolute Auto 2.3 X10*3/uL (1.2-4.9); Mean Corpuscular HGB Conc 31.6 g/dl (31.0-35.0); Mean Corpuscular Hemoglobin 31.9 pg (27.0-33.0); Mean Platelet Volume 8.9 fL (9.4-12.3); Monocytes Absolute Auto 0.5 X10*3/uL (0.1-1.2); Neutrophils Absolute Auto 3.8 x10*3/uL (2.0-8.3); Neutrophils Percent Auto 55.2 % (45-73); Platelet Count 359 X10*3/uL (160-400); Red Blood Count 4.04 X10*6/uL (4.20-5.50); Red Cell Distribution Width 12.9 % (11.0-16.0); White Blood Count 6.8 X10*3/uL (4.8-10.8)
[2024-12-15 14:28] LABS: Alanine Aminotransferase 15 U/L (0-31); Albumin Level 3.2 g/dL (3.5-5.0); Alkaline Phosphatase 97 U/L (39-117); Anion Gap 12 (12-20); Aspartate Amino Transferase 21 U/L (5-31); Bilirubin Total 0.3 mg/dL (0.0-1.0); Blood Urea Nitrogen 16 mg/dL (9-16); Calcium 9.2 mg/dL (8.4-10.2); Carbon Dioxide 26 mmol/L (22-29); Chloride 107 mmol/L (96-108); Cholesterol 172 mg/dL (<200); Estimated Glomerular Filt Rate > 60; Glucose Random 107 mg/dL (60-115); HDL Cholesterol 39 mg/dL (>40); LDL Cholesterol Calculated 85 mg/dL (<100); Potassium 4.5 mmol/L (3.3-5.1); Sodium 140 mmol/L (135-145); Total Protein 6.6 g/dL (6.5-8.0); Triglycerides 240 mg/dL (<150)
[2024-12-15 15:32] LABS: Free T4 (Free Thyroxine) 0.95 ng/dL (0.71-1.85)
== END 2024-12-15 11:12 | disposition home or self-care (01) ==
LOC: HO.WFDLDS 11:11
PROVIDERS: Visit Provider Internal Medicine
DX: I50.22 Chronic systolic (congestive) heart failure (principal); M25.561 Pain in right knee; M25.562 Pain in left knee; D50.9 Iron deficiency anemia, unspecified
CPT/HCPCS: 36415; 80053; 80061; 84439; 84443; 85025

== ENCOUNTER 2025-03-05 14:45 | Outpatient (AMB) | payer MEDICARE, SELFPAY ==
--- OUTSIDE RECORDS SUMMARY | 2025-03-05 14:48 | XMS_ITS | Clinical Summary ---
Author Organization [address] [facility] Address [address] [place] [address] Phone Care Team Providers Care Semiconductor Equipment Technician Name Role Phone Megan Bolanos MD Primary Care Provider [phone] Allergies Active Allergy Reactions Criticality Noted Date [...] Tablets by mouth 2 times daily. Active apixaban (ELIQUIS) 5 mg tablet Take 5 mg by mouth 2 times daily. 4 Active bumetanide (BUMEX) 1 mg tablet Take 1 mg by mouth daily. Active cholecalciferol (VITAMIN D-3) 50 mcg (2,000 unit) tablet 1 tablet once a day, then off for 1 week Active metoprolol succinate (TOPROL-XL) 25 mg 24 hr tablet Take 3 Tablets by mouth daily for 360 days. 4 05/04/20 25 Active esomeprazole (NexIUM) [address] capsule 1 CAPSULE DAILY Active rosuvastatin (CRESTOR) 10 mg tablet Take 1 Tablet by mouth daily. Active spironolactone (ALDACTONE) 25 mg tablet TAKE 1 TABLET DAILY 4 Active sulfaSALAzine (Azulfidine) 500 mg tablet Take 1,000 mg by mouth 2 times daily. Active FERROUS SULFATE ORAL Take by mouth 3 (three) times a week. 3 times a week Active KRILL OIL ORAL Take by mouth. Active amiodarone (PACERONE) 200 mg tablet TAKE 1 TABLET DAILY 90 tablet 1 5 Active sacubitriL-vals lexi (Entresto) 49-51 mg per tablet Take 1 tablet by mouth 2 (two) times a day. 180 tablet 2 5 Active sacubitriL-vals lexi (Entresto) 49-51 mg per tablet Take 49-51 mg by mouth 2 times daily. 4 02/14/20 25 Discontinu ed(Reorder ) sacubitriL-vals lexi (Entresto) 49-51 mg per tablet Take 1 tablet by mouth 2 (two) times a day. 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 Continue to monitor via [facility] device [facility]. 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 We discussed the risks including risk for pulmonary toxicity, hepatotoxicity, risk for worsening arrhythmias and risk for thyroid impairment. We will monitor the patient for these conditions throughout treatment. Patient was also warned about the risk for photosensitivity and solar dermatitis. Patient was advised to wear sunscreen and wear protective clothing including a hat when in direct sunlight. He was also educated to get yearly eye exams. 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 Per device 2.5% burden. Asymptomatic. CHASDVASc - 6. On apixaban. Continue with amiodarone and metoprolol. SOB (shortness of breath) 06/09/2023 Cardiomyopathy ([facility] V24, [facility] V28) 2021 Overview (12/26/2024): Nonischemic cardiomyopathy, NYHA I class symptoms June 2022 - angiogram showing no obstructive coronary artery disease (>50%) with normal LVEDP November 2023 -echocardiogram showing mildly reduced LV systolic function LVEF 45 to 50% with global hypokinesis, mild concentric left ventricular hypertrophy, normal biatrial size, normal RV systolic size, no hemodynamically significant valvular disease, compared to study from November 2022 left ventricular systolic function has improved and is now mildly reduced Assessment & Plan (12/26/2024 1:48 PM EST): Likely at least in part due to LBBB now s/p BiV pacemaker with improved LV systolic function. Echocardiogram from November 2023 showed mildly reduced LV systolic function LVEF 45-50% with global hypokinesis. Aside from lower extremity edema, she appears compensated on exam. Edema likely secondary to venous insufficiency. Continue with bumetanide, metoprolol, sacubitril-valsartan and spironolactone. Consider adding SGLT2, but given history of UTIs will hold off for now. We reviewed heart failure management including low-sodium diet, symptom surveillance, daily weights and medication compliance. Dyslipidemia 06/26/2022 Assessment & Plan (12/26/2024 1:48 PM EST): No recent lipid panel. Consider updating. Continue with rosuvastatin. Hypertension 06/26/2022 Assessment & Plan (12/26/2024 1:48 PM EST): Borderline soft. Continue with bumetanide, metoprolol, sacubitril-valsartan and spironolactone. Left bundle branch block 06/26/2022 Assessment & Plan (12/26/2024 1:48 PM EST): Left bundle branch block associated with cardiomyopathy, essential normal angiogram and now status post BiV pacemaker. Obesity 06/26/2022 Assessment & Plan (12/26/2024 1:48 PM EST): BMI 42.12. Limited mobility due to arthritis and chronic edema. Consider GLP1 injections. Encounters Date Type Department Care Team Description 02/16/2025 4:20 PM EDT Ancillary Procedure [facility] Cardiology [facility] [address] [place] [address] 02/13/2025 Telephone [facility] Cardiology [facility] [address] [place] [address] Sarbjit Nunes NP Med Refill (Entresto) 01/26/2025 8:20 PM EDT Ancillary Procedure [facility] [address] [place] [address] 01/26/2025 5:25 PM EDT Ancillary Procedure [facility] Cardiology [facility] [address] [place] [address] 01/23/2025 6:30 PM EDT Ancillary Procedure [facility] Cardiology [facility] [address] [place] [address] 01/22/2025 11:00 AM EDT Ancillary Procedure [facility] [address] [place] [address] Dilated cardiomyopathy ([facility] V24, [facility] V28) 12/13/2024 11:15 AM EST Ancillary Procedure [facility] - [facility] [address] [facility] [address] [place] [address] from Last 3 Months Surgical History Surgery Date Site/Laterality Comments VAGINAL DELIVERY PROCEDURE: NE VAGINAL DELIVERY ONLY; COMMENT: x2 OTHER SURGICAL HISTORY 07/2022 PROCEDURE: DIAGNOSTIC MAMMOGRAM CARDIAC CATHETERIZATION 06/2022 PROCEDURE: HISTORICAL CARDIAC CATH COLONOSCOPY PROCEDURE: HISTORICAL COLONOSCOPY OTHER SURGICAL HISTORY 07/2020 Right PROCEDURE: NE ANES ARTHROSCOPIC TOTAL SHOULDER REPLACEMENT OTHER SURGICAL HISTORY 07/2019 Left PROCEDURE: NE ANES ARTHROSCOPIC TOTAL SHOULDER REPLACEMENT CATARACT EXTRACTION [...] s, unspecified site Arthritis DX:Arthritis Crohn's disease ([facility] V24 , [facility] V28) DX:Crohn's disease ([facility]) Eczema DX:Eczema GERD (gastroesophageal reflux disease) DX:GERD (gastroesophageal reflux disease) Hypokalemia DX:Hypokalemia Leg swelling DX:Leg swelling Morbid obesity ([facility] V[facility], [facility] V28) DX:Morbid obesity ([facility]) Polymyalgia rheumatica ([facility] V24) DX:Polymyalgia rheumatica (HCC) Severe obesity ([facility] V24, [facility] V28) DX:Severe obesity (HCC) Family History Medical History Relation [...] Sign Reading Time Taken Comments Blood Pressure 120/60 01/22/2025 12:06 PM EDT Pulse 101 11/10/2024 2:39 PM EST Temperature - - Respiratory Rate - - Oxygen Saturation 94% 11/10/2024 2:39 PM EST Inhaled Oxygen Concentration - - Weight 108 kg (238 lb) 01/22/2025 12:06 PM EDT Height 157.5 cm (5' 2 ) 01/22/2025 12:06 PM EDT Body Mass Index 43.53 01/22/2025 12:06 PM EDT Plan of Treatment Upcoming Encounters Date Type Department Care Team (Late st Contact Info) Description 04/30/2025 1:10 PM EDT Office Visit [facility] - [facility] [address] [facility] [address] [place] [id number] Sarbjit Nunes NP [address] [place] [address] [address] [place] [address] 06/12/2025 1:00 PM EDT Ancillary Procedure [facility] [address] [place] [address] Health Maintenance Due Date Last Done Comments DTaP,Tdap,and Td Vaccines (1 - Tdap) 1964 Zoster Vaccines (2 of 3) 10/11/2013 08/16/2013 Cholesterol Screening (Lipid Panel) 10/04/2022 Depression Screening 10/04/2022 Falls Risk Assessment 10/04/2022 Medicare Annual Wellness Visit 10/04/2022 Osteoporosis Screening (Bone Density Screening) 10/04/2022 Social Influencers of Health Screening 10/04/2022 COVID-19 Vaccine (8 - Pfizer risk season) 2025 09/14/2024, 07/30/2023, 07/23/2022, Additional history exists Hypertension/CHF/CAD Annual BMP Blood Test 01/25/2026 01/25/2025, 10/23/2024 Pneumococcal Vaccine: 50+ Years Completed 09/04/2023, 06/05/2019 Influenza Vaccine Completed 08/23/2024, , 08/12/2022, Additional history exists RSV Immunization Adult Patients Completed 08/23/2024 HIB Vaccines Aged Out No longer eligi [...] age to complete this topic Meningococcal B Vaccine Aged Out No l onger eligible based on patient's age to complete this topic RSV Immunization Patients Under 20 months Aged Out No longer eligible based on patient's age to complete this topic Varicella Vaccines Aged Out No longer eligible based on patient's age to complete this topic Medical Devices Implanted Type Area Pourer Off Device Identifier Shelf Expiration Date Model / Serial / Lot Medt-Card Claria Mri Quad Crtd [id number] Implanted:04/24 (Quantity not on file) Cardiac SECURITY VEHICLE PATROL OFFICER-D ICD MED[employer]ON[employer] - CARDIAC RHYTH-CRDM CLARIA MRI QUAD CRTD [id number] / [id number] / Procedures Procedure Name Priority Date/Time Associated Diagnosis Comments CARDIAC DEVICE CHECK- REMOTE- MURJ Routine 02/16/2025 4:19 PM EDT CARDIAC DEVICE CHECK- REMOTE- MURJ Routine 01/26/2025 8:19 PM EDT CARDIAC DEVICE CHECK- REMOTE- MURJ Routine 01/26/2025 5:23 PM EDT ..THYROXINE FREE Routine 01/25/2025 1:37 PM EDT COMPREHENSIVE METABOLIC PANEL Routine 01/25/2025 1:37 PM EDT Paroxysmal atrial fibrillation (CMS/HCC V24, CMS/HCC V28) HEPATIC FUNCTION PANEL Routine 1:37 PM EDT Paroxysmal atrial fibrillation (CMS/HCC V24, CMS/HCC V28) THYROID STIMULATING HORMONE WITH REFLEX FREE T4 Routine 01/25/2025 1:37 PM EDT Paroxysmal atrial fibrillation (CMS/HCC V24, CMS/HCC V28) MAGNESIUM Routine 01/25/2025 1:37 PM EDT Paroxysmal atrial fibrillation (CMS/HCC V24, CMS/HCC V28) CARDIAC DEVICE CHECK- REMOTE- MURJ Routine 01/23/2025 6:26 PM EDT TRANSTHORACIC ECHOCARDIOGRAM (TTE) COMPLETE W/ CONTRAST Routine 01/22/2025 12:05 PM EDT Dilated cardiomyopathy (CMS/HCC V24, CMS/HCC V28) CARDIAC DEVICE CHECK- REMOTE- MURJ Routine 12/13/2024 11:14 AM EST from Last 3 Months Results * Cardiac device check - Remote- MURJ (02/16/2025 4:19 PM EDT) Only the most recent of5 resultswithin the time period is included. Date Time Interrogation Session [id number] CV DEVICE CHECK Type Interrogation Session Remote CV DEVICE CHECK Implantable Pulse Generator Pourer Off MDT CV DEVICE CHECK Implantable Pulse Generator Type SECURITY VEHICLE PATROL OFFICER-D CV DEVICE CHECK Implantable Pulse Generator Model Claria MRI Quad CRTD [id number] CV DEVICE CHECK Implantable Pulse Generator Serial Number [id number] CV DEVICE CHECK Implantable Pulse Generator Implant Date [id number] CV DEVICE CHECK Battery Remaining Longevity 99.0 CV DEVICE CHECK Battery Voltage 3.010 CV D EVICE CHECK Battery UTILITY SPRAY OPERATOR Trigger 2.727 CV DEVICE CHECK Battery Status Middle of Service CV DEVICE CHECK Capacitor Charge Time 3.663 CV DEVICE CHECK Medardo Statistic RA Percent Paced 8.90 CV DEVICE CHECK Medardo Statistic RV Percent Paced 7.23 CV DEVICE CHECK SECURITY VEHICLE PATROL OFFICER Statistic LV Percent Paced 97.02 CV DEVICE CHECK SECURITY VEHICLE PATROL OFFICER Statistic SECURITY VEHICLE PATROL OFFICER Percent Paced 7.18 CV DEVICE CHECK Atrial Tachy Statistic AT/AF [place] Percent 0.00 CV DEVICE CHECK Lead Channel Sensing Intrinsic Amplitude 3.000 CV DEVICE CHECK Lead Channel Setting Sensing Sensitivity 0.30 CV DEVICE CHECK Lead Channel Impedance Value 418 CV DEVICE CHECK Lead Channel Pacing Threshold Amplitude 0.500 CV DEVICE CHECK Lead Channel Pacing Threshold Pulse Width 0.4 CV DEVICE CHECK Lead Channel RA Pacing Threshold Date 2025-02-10 CV DEVICE CHECK Lead Channel Setting Pacing Amplitude 1.500 CV DEVICE CHECK Lead Channel Setting Pacing Pulse Width 0.4 CV DEVICE CHECK Lead Channel Sensing Intrinsic Amplitude 8.000 CV DEVICE CHECK Lead Channel Setting Sensing Sensitivity 0.30 CV DEVICE CHECK Lead Channel Impedance Value 399 CV DEVICE CHECK Lead Channel Pacing Threshold Amplitude 0.875 CV DEVICE CHECK Lead Channel Pacing Threshold Pulse Width 0.4 CV DEVICE CHECK Lead Channel RV Pacing Threshold Date 2025-02-10 CV DEVICE CHECK Lead Channel Setting Pacing Amplitude 2.000 CV DEVICE CHECK Lead Channel Setting Pacing Pulse Width 0.4 CV DEVICE CHECK Lead Channel Impedance Value 760 CV DEVICE CHECK Lead Channel Pacing Threshold Amplitude 1.125 CV DEVICE CHECK Lead Channel Pacing Threshold Pulse Width 0.4 CV DEVICE CHECK Lead Channel Pacing Threshold Date 2025-02-10 CV DEVICE CHECK Lead Channel Setting Pacing Amplitude 1.750 CV DEVICE CHECK Lead Channel Setting Pacing Pulse Width 0.4 CV DEVICE CHECK Medardo Setting Mode (NBG Code) DDD CV DEVICE CHECK Ventricular chambers paced during SECURITY VEHICLE PATROL OFFICER pacing. LVOnly CV DEVICE CHECK Medardo Setting [...] 0 CV DEVICE CHECK RV HV Impedance 97 CV D EVICE CHECK Zone Setting Type [...] 6 CV DEVICE CHECK Date of Service 2025-03-17 CV DEVICE CHECK Anatomical Region Laterality Modality Device Interroga tion 02/10/2025 4:37 AM EDT Impressions 02/16/2025 4:02 PM EDT Heart Failure Diagnostic: Stable * Heart failure diagnostics assessed through the device * Status: Stable * No overt HF present Narrative Procedure Note Cristel Manning MD - 02/16/2025 IMPRESSION: Heart Failure Diagnostic: Stable * Heart failure diagnostics assessed through the device * Status: Stable * No overt HF present us Cristel Manning MD CV IMPLANTABLE CARDIAC DEV ICE PROCEDURES Final Result * Thyroxine free (01/25/2025 1:37 PM EDT) T4 (Thyroxine) Free (Direct) 0.97 0.82 - 1.77 ng/dL [facility] 1 01/25/2025 1:37 PM EDT 01/25/2025 Narrative [facility] 1 - 01/26/2025 3:07 PM EDT Performed at: ??01 - [facility] ??[id number] Production Maintenance Technician: Eve De Santiago MD, Phone: ??[phone] us Silvio Hunter MD LAB BLOOD ORDERABLES Final Resul t [facility] 1 * (ABNORMAL) Thyroid stimulating hormone with reflex free T4 (01/25/2025 1:37 PM EDT) Thyroid Stimulating Hormone (TSH) 8.080(H) 0.450 - 4.500 uIU/mL [facility] 1 Blood Venous blood specimen / Unknown 01/25/2025 1:37 PM EDT 01/25/2025 Narrative [facility] 1 - 01/26/2025 3:07 PM EDT Performed at: ??01 - [facility] [address] ??[id number] Production Maintenance Technician: Eve De Santiago MD, Phone: ??[phone] Silvio Hunter MD LAB BLOOD ORDERABLES Final Resul t Performing Organization Address [facility] de Phone Number [facility] 1 * Magnesium (01/25/2025 1:37 PM EDT) Magnesium 1.9 1.6 - 2.3 mg/dL [facility] 1 Blood Venous blood specimen / Unknown 01/25/2025 1:37 PM EDT 01/25/2025 Narrative [facility] 1 - 01/26/2025 3:07 PM EDT Performed at: ??01 - [facility] [address] ??[id number] Production Maintenance Technician: Eve De Santiago MD, Phone: ??[phone] Silvio Hunter MD LAB BLOOD ORDERABLES Final Resul t Performing Organization Address [facility] de Phone Number [facility] * Hepatic function panel (01/25/2025 1:37 PM EDT) Bilirubin Direct 0.10 0.00 - 0.40 mg/dL [facility] 1 Blood Venous blood specimen / Unknown 01/25/2025 1:37 PM EDT 01/25/2025 Narrative [facility] 1 - 01/26/2025 3:07 PM EDT Performed at: ??01 - [facility] [address] ??[id number] Production Maintenance Technician: Eve De Santiago MD, Phone: ??[phone] Silvio Hunter MD LAB BLOOD ORDERABLES Final Resul t Performing Organization Address [facility] de Phone Number [facility] * (ABNORMAL) Comprehensive metabolic panel (01/25/2025 1:37 PM EDT) Glucose 118(H) 70 - 99 mg/dL [facility] 1 Blood Urea Nitrogen (BUN) 14 8 - 27 mg/dL [facility] 1 Creatinine 0.72 0.57 - 1.00 mg/dL [facility] 1 eGFR 84 >59 mL/min/1. 73 [facility] 1 BUN/Creatinine Ratio 19 12 - 28 [facility] 1 Sodium 142 134 - 144 mmol/L [facility] 1 Potassium 4.2 3.5 - 5.2 mmol/L [facility] 1 Chloride 103 96 - 106 mmol/L [facility] 1 Carbon Dioxide 21 20 - 29 mmol/L [facility] 1 Calcium 8.5(L) 8.7 - 10.3 mg/dL [facility] 1 Protein Total 5.5(L) 6.0 - 8.5 g/dL [facility] 1 Albumin 3.3(L) 3.7 - 4.7 g/dL [facility] 1 Globulin Total 2.2 1.5 - 4.5 g/dL [facility] 1 Bilirubin Total <0.2 0.0 - 1.2 mg/dL [facility] 1 Alkaline Phosphatase 109 44 - 121 IU/L [facility] 1 Aspartate aminotransferase??(A ST) 17 0 - 40 IU/L [facility] 1 Alanine Aminotransferase (ALT) 16 0 - 32 IU/L [facility] 1 Blood Venous blood specimen / Unknown 01/25/2025 1:37 PM EDT 01/25/2025 Narrative [facility] 1 - 01/26/2025 11:07 AM EDT Performed at: ??01 - [facility] [address] ??[id number] Production Maintenance Technician: Eve De Santiago MD, Phone: ??[phone] us Silvio Hunter MD LAB BLOOD ORDERABLES Final Resul t [facility] 1 * (ABNORMAL) TRANSTHORACIC ECHOCARDIOGRAM (TTE) COMPLETE W/ CONTRAST (01/22/2025 12:05 PM EDT) Left Atrium Minor Durand 5.5 cm CV PACS Left Atrium Major Durand 5.3 cm CV PACS LA Area Sys (A2C) 23 cm2 CV PACS LA Area Sys (A4C) 21 cm2 CV PACS LA Volume (BP) 70 mL CV PACS RA Area 13.8 cm2 CV PACS RA 2D Volume 32 mL CV PACS Aortic Sinus Valsalva 3.6 cm CV PACS Ascending Aorta 3.4 cm CV PACS IVC Proximal 1.3 cm CV PACS IVC Proximal 0.5 cm CV PACS IVSD 1.1(A) 0.6 - 0.9 cm CV PACS LVIDD 4.5 3.8 - 5.2 cm CV PACS LVIDS 4.5(A) 2.2 - 3.5 cm CV PACS LVOT Diameter 1.9 cm CV PACS LVOT Mean Paresh 0.7 m/s CV PACS LVOT Mean Grad 2 mmHg CV PACS LVOT Peak VTI 23.6 cm CV PACS LVOT Peak Paresh 1.0 m/s CV PACS LVOT Peak Gradient 4 mmHg CV PACS LVPWD 1.1(A) 0.6 - 0.9 cm CV PACS MV E' Tissue Velocity Lateral 10 cm/s CV PACS MV E' Tissue Velocity Septal 5 cm/s CV PACS LVOT Area 2.8 cm2 CV PACS LVOT Stroke Volume 67 mL CV PACS E Wave Deceleration Time 261(A) 119 - 242 ms CV PACS MV Peak A Paresh 0.82 m/s CV PACS MV Peak E Paresh 0.76 m/s CV PACS NE End Max Velocity 1.0 m/s CV PACS PA End Diastolic Pressure 4 mmHg CV PACS PV Acceleration Time 85 ms CV PACS RV Diastolic Basal Dimension 3.0 2.5 - 4.1 cm CV PACS RV S' 11 cm/s CV PACS TAPSE 20 mm CV PACS TR Peak Velocity 1.81 m/s CV PACS TR Peak Gradient 13 mmHg CV PACS E/E' Ratio Septal 15 CV PACS E/E' Ratio Averaged 11 CV PACS Relative Wall Thickness ratio 0.49 CV PACS FS 0 % CV PACS LV Mass 2D 175 g CV PACS LVOT flow 198 mL/s CV PACS E/A Ratio 0.9 CV PACS E/E' Ratio Lateral 8 CV PACS BSA 2.17 m2 CV PACS LA Volume Index (BP) 34 mL/m2 CV PACS LVIDD Index 2.18 cm/m2 CV PACS LVIDS Index 2.18 cm/m2 CV PACS LV Mass Index 2D 85 44 - 88 g/m2 CV PACS LVOT Stroke Index 33 mL/m2 CV PACS RA 2D Volume Index 16 15 - 27 mL/m2 CV PACS Ascending Aorta Index 1.65 cm/m2 CV PACS Anatomical Region Laterality Modality Ultrasound Narrative 01/22/2025 3:10 PM EDT Left ventricle cavity size is normal. There is mild concentric hypertrophy. Systolic function is normal with an ejection fraction of 55-60%. There are no regional LV wall motion abnormalities No hemodynamically significant valvular dysfunction Compared to the report of the prior study from 2023, the LV systolic function previously mildly reduced is now normal. Left Ventricle Left ventricle cavity size is normal. There is mild concentric hypertrophy. Systolic function is normal with an ejection fraction of 55-60%. There are no regional LV wall motion abnormalities. There is Grade I (mild) diastolic dysfunction. Right Ventricle Right ventricle cavity appears normal. Systolic function is normal. A pacer wire is present in the right ventricle. Left Atrium Left atrium cavity size is normal. Right Atrium Right atrium cavity is normal. A pacer wire is present in the right atrium. IVC/SVC Inferior vena cava structure is normal. RA pressures is estimated to be 3 mmHg (IVC diameter <21 mm and decreases >50% during inspiration). Mitral Valve The leaflets are mildly thickened. There is mild annular calcification. There is no significant mitral valve regurgitation. There is no significant stenosis noted. Tricuspid Valve Tricuspid valve structure is normal. The leaflets exhibit probably normal excursion. There is trace regurgitation. There is no significant tricuspid valve stenosis. Cannot assess RVSP. Aortic Valve The aortic valve is trileaflet. The leaflets are not thickened and exhibit normal excursion. There is mild regurgitation. There is no evidence of aortic valve stenosis. Pulmonic Valve The pulmonic valve was not well visualized. There is mild pulmonic valve regurgitation. No significant pulmonary valve stenosis noted. Ascending Aorta The aorta appears normal in size. Pericardium Pericardium appears normal. There is no pericardial effusion. Study Details Overall the study quality was suboptimal. Definity contrast was given to enhance imaging. Study was difficult due to: poor endocardial visualization. Silvio Hunter MD CV ECHO PROCEDURES Final Result from Last 3 Months Insurance [employer] MEDICARE Care Teams Semiconductor Equipment Technician Relationship Specialty Start Date End Date Megan Bolanos MD [address] [place] [phone] PCP - General Internal Medicine 01/22/25
--- NOTE | 2025-03-05 14:52 | MHC.PC.OV ---
Vital Signs 03/05/25 14:58 Height 5 ft 2.2 in Weight 231 lb 6 oz BMI 42.0 BP 126/70 Blood Pressure Location Rt brachial Position Sitting Respiration 14 Pulse 91 Pulse Source Pulse Oximeter Pulse Oximetry (%) 96 Oxygen Delivery Method Room Air Intake Visit Reasons: Annual Physical - see comments Intake Note: Physcial Chip Drier Required: No Allergies penicillin V Allergy (Intermediate, Verified 03/05/25 14:55) Rash benazepril Allergy (Mild, Verified 03/05/25 14:55) Cough aspirin Adverse Reaction (Intermediate, Verified 03/05/25 14:55) bleeding Tobacco use date assessed: 03/05/25 Fall risk assessment: No Falls in past year Last assessed Fall Risk: 03/05/25 Dental Screening Dental Screen Date: 03/05/25 Did you have a dental visit in the last 12 months?: Yes Did you have a dental problem in the last 6 months where you did not have access to dental care?: No Was dental information given to patient?: Patient has dentist HPI HPI Comments History of Present Illness Details Patient is an 78 year old female with a past medical history of CHF, atrial fibrillation, GERD, OA presenting for physical exam CV: Follows with Dr Hunter. On eliquis, bumex, entresto, spironolactone, amoiodarone (restarted March 19). Denies chest pain, palpitations. Chronic LE edema OA: Knee pain, foot pain. Stable on prn tramadol. Had bilateral knee injections. Considering for bilateral knee replacement Has been having issues with foot rash-appears as dyshidrotic eczema. Has been using lotrisone cream. 02/24/2024 Mammogram ROS CONSTITUTIONAL: Denies weight loss, fever and chills. HEENT: Denies changes in vision and hearing. RESPIRATORY: Denies SOB and cough. CV: Denies palpitations and CP GI: Denies abdominal pain, nausea, vomiting and diarrhea. : Denies dysuria and urinary frequency. MSK: Denies new myalgia and joint pain. SKIN: Denies rash and pruritus. NEUROLOGICAL: Denies headache PSYCHIATRIC: Denies recent changes in mood. PHYSICAL EXAM: GENERAL: Alert and oriented x 3. NAD EYES: EOMI. Anicteric. HENT: Moist mucous membranes. No scleral icterus. No cervical lymphadenopathy. LUNGS: Clear to auscultation bilaterally. CARDIOVASCULAR: Regular rate and rhythm. No murmur. No JVD. ABDOMEN: Soft, non-tender +bs EXTREMITIES: No edema. Non-tender. SKIN: No rashes or lesions. Warm. NEUROLOGIC: No focal neurological deficits. CN II-XII grossly intact PSYCHIATRIC: Cooperative. Appropriate mood and affect [facility] Medical History Osteopenia with high risk of fracture Polymyalgia rheumatica Surgical History History of implantable cardioverter-defibrillator (ICD) insertion Social History (Updated 03/05/25 @ 15:34 by Yulisa Khan CMA) Household Members: Spouse Housing: House Alcohol intake: current Alcohol intake frequency: a few times a month Patient Tobacco Use Status: Never used Tobacco e-Cigarette/Vaping Use: Never Used Second Hand Smoke Exposure: Yes (past) Use of substances other than those prescribed or required for medical reasons: No service: No Current occupational status: employed 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 1. Little interest or pleasure in doing things: not at all 2. Feeling down, depressed, or hopeless: not at all 3. Trouble falling or staying asleep, or sleeping too much: not at all 4. Feeling tired or having little energy: not at all 5. Poor appetite or overeating: not at all 6. Feeling bad about yourself - or that you are a failure or have let yourself or your family down: not at all 7. Trouble concentrating on things, such as reading the newspaper or watching television: not at all 8. Moving or speaking so slowly that other people could have noticed. Or the opposite - being so fidgety or restless that you have been moving around a lot more than usual: not at all 9. Thoughts that you would be better off or of hurting yourself in some way: not at all Total score: 0 Source: Developed by Drs. Kenrick Murrieta, Coni Hernandez, Brien Byers and colleagues, with an educational beverley from [employer]. Thrive Questionnaire Date Thrive assessed: 03/02/25 I am a: Patient What is your living situation today?: I have a steady place to live Within the past 12 months, did the food you bought not last and you didn't have the money to get more?: Never true Within the past 12 months, did you worry whether your food would run out before you got money to buy more?: Never true Do you have trouble paying for medicines?: No Do you have trouble getting transportation to medical appointments?: No Do you have trouble paying your heating and electricity bill?: No Do you have trouble taking care of your child, family member or friend?: No Do you have trouble with day-to-day activities such as bathing, preparing meals, shopping, managing finances, etc.?: No Are you currently unemployed and looking for a job?: No Are you interested in more education?: No Please select the resources that you would like help with: None Currently or been in a relationship where the following occur: I choose not to answer THRIVE Score: 0 AUDIT C Alcohol Use Questionnaire (AUDIT-C) 1. How often do you have a drink containing alcohol?: Monthly or less 2. How many drinks containing alcohol do you have on a typical day when you are drinking?: 1 or 2 3. How often do you have six or more drinks on one occasion?: Never Total Score: 1 MARY JANE-7 AMB Questionnaire MARY JANE-7 Date MARY JANE - 7 assessed: 03/05/25 Feeling nervous, anxious, or on edge: 0 = Not at all Not being able to stop or control worryin = Not at all Worrying too much about different things: 0 = Not at all Trouble relaxin = Not at all Being so restless that it is hard to sit still: 0 = Not at all Becoming easily annoyed or irritable: 0 = Not at all Feeling afraid as if something awful might happen: 0 = Not at all Total MARY JANE-7 score (0-4 normal; 5-9 mild; 10-14 moderate; 15-21 severe): 0 Source: Developed by Drs. Kenrick Murrieta, Coni Hernandez, Brien Byers and colleagues, with an educational beverley from [employer]. MARY JANE-7 Assessment Billing MARY JANE-7 Assessment Tool: MARY JANE-7 Assessment 72583 Physical exam (Primary Care) Vital Signs: Last Vital Signs Pulse 91 03/05/25 14:58 Resp 14 03/05/25 14:58 BP 126/70 03/05/25 14:58 Pulse Ox 96 03/05/25 14:58 Oxygen Delivery Method Room Air 03/05/25 14:58 BMI result Body Mass Index 42.0 Tobacco/Smoking Status: Tobacco use Status Tobacco use date assessed 03/05/25 03/05/25 15:00 Patient Tobacco Use Status Never used Tobacco 03/05/25 14:54 e-Cigarette/Vaping Use Never Used 03/05/25 14:54 PHQ-9: PHQ-9 Score PHQ-9: Total score 0 03/05/25 16:16 Thrive Assessment: Date of Thrive Assessment Date Thrive assessed 03/02/25 03/05/25 14:54 Currently or been in a relationship where the following occur: I choose not to answer Coding Level of Care Code Est Pt Prev Care >65y(39923) Diagnoses Physical exam Z00.00 Additional Codes MARY JANE-7 Assessment Billing - MARY JANE-7 Assessment Tool: MARY JANE-7 Assessment 92105 ([id number]) Assessment & Plan Assessment & Plan (1) Physical exam: Code(s): Z00.00 - Encounter for general adult medical examination without abnormal findings Category: Medical Plan 79 year old for physical exam CHF-stable, euvolemic Labs ordered Celbrex ordered Bumex refilled Orders: Orders TSH reflex Free T4 03/05/25 D50.9 - Iron deficiency anemia, unspecified, I50.22 - Chronic systolic (congestive) heart failure, M35.3 - Polymyalgia rheumatica Complete Blood Count Auto Diff 03/05/25 D50.9 - Iron deficiency anemia, unspecified, I50.22 - Chronic systolic (congestive) heart failure, M35.3 - Polymyalgia rheumatica Vitamin B12 and Folate 03/05/25 D50.9 - Iron deficiency anemia, unspecified, I50.22 - Chronic systolic (congestive) heart failure, M35.3 - Polymyalgia rheumatica IRON PROFILE 03/05/25 D50.9 - Iron deficiency anemia, unspecified, I50.22 - Chronic systolic (congestive) heart failure, M35.3 - Polymyalgia rheumatica Medications: New celecoxib (Celebrex) 200 mg PO BID PRN 180 caps 3RF pain Refilled bumetanide 1 mg PO DAILY 90 tabs 3RF
[2025-03-05 14:58] VITALS: BP 126/70; PULSE 91; RESP 14; O2SAT 96; BMI 42.0
== END 2025-03-05 15:25 | disposition home or self-care (01) ==
LOC: HO.HMCFM 14:46
PROVIDERS: PCP Internal Medicine; Visit Provider Internal Medicine
DX: Z00.00 Encounter for general adult medical examination without abnormal findings (principal)

== ENCOUNTER → 2025-03-05 14:45 | Outpatient (BNVA) | payer MEDICARE, SELFPAY | PROVIDERS: PCP Internal Medicine; Visit Provider Internal Medicine | DX: Z00.00 Encounter for general adult medical examination without abnormal findings (principal); I50.9 Heart failure, unspecified; I48.91 Unspecified atrial fibrillation; K21.9 Gastro-esophageal reflux disease without esophagitis; M19.90 Unspecified osteoarthritis, unspecified site; Z79.01 Long term (current) use of anticoagulants; Z79.899 Other long term (current) drug therapy | CPT/HCPCS: 96127; 99397 ==

== ENCOUNTER 2025-04-04 14:00 | Outpatient (AMB) | payer MEDICARE, SELFPAY ==
--- NOTE | 2025-04-04 14:13 | MHC.OFFVIS ---
Vital Signs 04/04/25 14:25 Height 5 ft 2.2 in Weight 232 lb 9.403 oz BMI 42.3 BP 132/80 Blood Pressure Location Lt brachial Position Sitting Pulse 98 Pulse Source Pulse Oximeter Pulse Oximetry (%) 98 Oxygen Delivery Method Room Air Intake Visit Reasons: osteoporosis Intake Note: Patient presents for Osteoporosis. Allergies penicillin V Allergy (Intermediate, Verified 04/04/25 14:21) Rash benazepril Allergy (Mild, Verified 04/04/25 14:21) Cough aspirin Adverse Reaction (Intermediate, Verified 04/04/25 14:21) bleeding Medication List - Last Reconciled 04/04/25 by Ele Frances MD acetaminophen ER (Tylenol Arthritis Pain) 1,300 mg PO BID amiodarone 200 mg PO DAILY apixaban (Eliquis) 5 mg PO BID bumetanide 1 mg PO DAILY celecoxib (Celebrex) 200 mg PO BID PRN cholecalciferol (vitamin D3) 25 mcg PO DAILY clotrimazole-betamethasone 1-0.05 % 1 appl topical BID esomeprazole magnesium (Nexium) 40 mg PO DAILY ferrous sulfate (FeroSul) 325 mg PO Q OTHER DAY folic acid 1 mg PO DAILY magnesium hydroxide 400 mg PO DAILY metoprolol succinate ER 75 mg PO DAILY omega-3 fatty acids (Fish Oil Concentrate) 1,000 mg PO DAILY rosuvastatin 10 mg PO DAILY 90 days sacubitril-valsartan 49-51 mg (Entresto) 1 tab PO BID spironolactone 25 mg PO DAILY sulfasalazine (Azulfidine EN-tabs) 1,000 mg PO BID walker (Ultra-Light Rollator misc) With seat HPI Comments Details: Patient is an 79-year-old female with AFib on Eliquis, hyperlipidemia, hypertension complicated by heart failure status post ICD placement, Crohn's disease, osteopenia and polyarticular osteoarthritis here today for follow up Interval History: Patient last seen 06/08/[address] Lawler. At that time she was following up for her osteopenia. She has a history of PMR off steroids since 2020. At that visit she was following up for her osteoarthritis and osteopenia. Noting knee and ankle pain. OA: sees [facility] for ortho. And gets steroid injections. Last injection 01/2025 Osteopenia: No falls or fractures. The pain did not after stopping the alendronate so she does not think it was related PMR: No recurrence of symptoms after shoulder surgery. No headache or vision changes Rheumatologic History: On sulfasalazine for her history of Crohn's disease, diagnosed in her 30s Previously diagnosed with PMR however had improvement of her shoulder pain after right shoulder replacement. And so she was tapered off of her steroids. Was on alendronate for osteoporosis for 8 months and stopped after May 2021 due to hip pain Mother had history of PMR. 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 Current occupational exposures/hazards: No Cognitive needs: No Hearing needs: No Vision needs: No Review of Systems Const Details: Review of Systems Constitutional: Denies fever, chills, weight loss ENT: Denies vision changes, eye pain or eye redness, dental caries, dry mouth GI: Denies nausea, vomiting, diarrhea, abdominal pain, change in BM Pulm: Denies SOB, SEXTON, hemoptysis, wheezing Cards: Denies chest pain, palpitations Skin: Denies Raynaud's, rash, nail changes, photosensitivity, LEATHER TOOLER: Denies headaches, weakness, paresthesias, recurrent falls MSK: as per HPI All other systems reviewed and are unremarkable except noted above Physical Exam Vital Signs: Last Vital Signs Pulse 98 04/04/25 14:25 BP 132/80 04/04/25 14:25 Pulse Ox 98 04/04/25 14:25 Oxygen Delivery Method Room Air 04/04/25 14:25 BMI result Body Mass Index 42.3 Vital signs reviewed Physical Examination CONSTITUITIONAL Patient alert and cooperative. Well appearing and in no apparent painful distress Obese Examined in chair MSK Hands: ?Able to make a fist. No synovitis noted to the MCPs, PIPs or DIPs. ?No tenderness to palpation of these joints. Soledad's nodes noted Wrists: ?Full range of motion at the wrists without pain. ?No tenderness to palpation or synovitis noted to the wrists. Elbows: Full range of motion without pain. No tenderness, weakness, swelling, increased warmth or erythema. Shoulders: Full range of active range of motion without pain. No tenderness, weakness, swelling, increased warmth or erythema. Knees: ?Full range of motion. ?No tenderness, swelling, increased warmth or erythema.?Crepitations felt Ankles: Full range of motion. ?No tenderness, swelling, increased warmth or erythema.? Pitting edema up to mid olivas Feet: ?Negative squeeze test. ?No tenderness to palpation or swelling of the MTPs. Tender points:?No tenderness to palpation of the bilateral trapezius, supraspinatus, greater trochanters, anterior costochondral junctions, bilateral gluteal areas, bilateral suboccipital muscle insertions SKIN Skin intact without rashes. Results Reviewed Results Reviewed: Laboratory Tests 06/15/22 04/25/24 12/15/24 09:55 10:40 11:12 WBC 6.8 RBC 4.04 L Hgb 12.9 Hct 40.8 Plt Count 359 ESR 25 H Sodium 140 Potassium 4.5 Chloride 107 Carbon Dioxide 26 BUN 16 Creatinine 0.80 AST 21 ALT 15 Alkaline Phosphatase 97 HDL Cholesterol 44 39 L 25-OH Vitamin D Total 44.2 DEXA 10/2024 FINDINGS: The bone mineral density of the lumbar spine is 1.438 with a T-score of 2.2, and a Z-score of 2.8. This represents a BMD change of -5.8% compared to the prior exam. This is statistically significant. The bone mineral density of the left total hip is 0.798 with a T-score of -1.7, and a Z-score of -0.4. This represents BMD change of -7.2% compared to the prior exam. This is statistically significant. The bone mineral density of the left femoral neck is 0.783 with a T-score of -1.8, and a Z-score of -0.4. This represents BMD change of -2.0% compared to the prior exam. FRACTURE RISK: The FRAX index suggests a ten year probability of major osteoporotic fracture of 19.5%, and of hip fracture 5.9%. Assessment & Plan Assessment & Plan (1) Generalized osteoarthritis: Code(s): M15.9 - Polyosteoarthritis, unspecified Category: Medical Plan: #Polyarticular OA Patient is an 79-year-old female with polyarticular osteoarthritis here today for follow up. Currently stable. Following up with Orthopedics for evaluation of knee replacement. Plan - Stable - RTC 6 months (2) Osteopenia: Comment: DEXA 09/2020. AP Spine 2.3, Left femur neck -2.0, Left femur total -1.2. FRAX: 18.5/5.3 DEXA 09/2022. AP Spine 2.4, Left femur neck -1.7, Left femur total -1.2. DEXA 10/2024. AP Spine 2.2, Left femur neck -1.7, Left femur total -1.8. FRAX: 19.5/5.9 DEXA in 2019 with T-score? -2.0 with high FRAX she was started on alendronate due to the high FRAX which she took for approximately 8 months and stopped May 2021.? Alendronate was discontinued by the patient due to hip pain Code(s): M85.80 - Other specified disorders of bone density and structure, unspecified site Category: Medical Qualifiers: Osteopenia location: multiple sites Qualified Code(s): M85.89 - Other specified disorders of bone density and structure, multiple sites Plan: #Osteopenia Patient with osteopenia with elevated FRAX Patient is willing to restart her alendronate Plan - Continue Vit D supplementation - Alendronate 70mg weekly (3) Polymyalgia rheumatica: Code(s): M35.3 - Polymyalgia rheumatica Category: Medical Plan: #History of PMR Patient diagnosed with PMR based on bilateral shoulder pain. Off prednisone since November 2020. Her pain improved after bilateral shoulder replacements. PMR continues to appear to be in remission. No further action needed at this time. Plan I spent 30 minutes reviewing the record and labs, taking a history, examining the patient, discussing the treatment plan, ordering diagnostic work up and documenting in the medical record Medications: New alendronate 70 mg PO QWEEK 90 tabs 1RF M85.89 - Other specified disorders of bone density and structure, multiple sites Refilled clotrimazole-betamethasone 1-0.05 % 1 appl topical BID 45 grams 1RF B35.3 - Tinea pedis Coding Level of Care Code Est Pt Level 4 (60145) Complex EM visit Add On G2211 Diagnoses Generalized osteoarthritis M15.9 Osteopenia of multiple sites M85.89 Osteopenia location: multiple sites Polymyalgia rheumatica M35.3
[2025-04-04 14:25] VITALS: BP 132/80; PULSE 98; O2SAT 98; BMI 42.3
--- OUTSIDE RECORDS SUMMARY | 2025-04-04 16:00 | XMS_ITS | Clinical Summary ---
Author Organization [address] [place] [address] Address [address] [place] [address] Phone Care Team Providers Care Hob Mill Operator Name Role Phone Megan Bolanos MD Primary Care Provider [phone] Allergies Active Allergy Reactions Criticality Noted Date [...] TAKE 1 TABLET DAILY 90 tablet 1 01/16/2025 Active sacubitriL-vals lexi (Entresto) 49-51 mg per tablet Take 1 tablet by mouth 2 (two) times a day. 180 tablet 2 02/14/2025 Active Active Problems Problem Noted Date Diagnosed Date Status post biventricular pacemaker 12/26/2024 Overview (12/26/2024): April 2023 - Medtronic dual chamber biventricular BACKREST ASSEMBLER-D Claria MRI Quad CRTD [id number] Assessment & Plan (12/26/2024 1:48 PM EST): Functioning well on last device check. Continue to monitor via [facility] current use of amiodarone 12/26/2024 Assessment & [...] also educated to get yearly eye exams. 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 Per device 2.5% burden. Asymptomatic. CHASDVASc - 6. On apixaban. Continue with amiodarone and metoprolol. SOB (shortness of breath) 06/09/2023 Cardiomyopathy (CMS/HCC V24, CMS/HCC V28) 2021 Overview (12/26/2024): Nonischemic cardiomyopathy, NYHA [...] Encounters Date Type Department Care Team Description 03/15/2025 1:15 AM EDT Ancillary Procedure [facility] Cardiology [facility] [address] [place] [address] 02/16/2025 4:20 PM EDT Ancillary Procedure [facility] [address] [place] [address] 02/13/2025 Telephone [facility] Cardiology [facility] [address] [place] [address] Des, MENDOZA Schaffer Med Refill (Entresto) 01/26/2025 8:20 PM EDT Ancillary Procedure [facility] [address] [place] [address] 01/26/2025 5:25 PM EDT Ancillary Procedure [facility] [address] [place] [address] 01/23/2025 6:30 PM EDT Ancillary Procedure [facility] [address] [place] [address] 01/22/2025 11:00 AM EDT Ancillary Procedure [facility] [address] [place] [address] Dilated cardiomyopathy (CMS/HCC V24, CMS/HCC V28) from Last 3 Months Surgical History Surgery Date Site/Laterality Comments VAGINAL DELIVERY PROCEDURE: MS VAGINAL DELIVERY ONLY; COMMENT: x2 OTHER SURGICAL HISTORY 07/2022 PROCEDURE: DIAGNOSTIC MAMMOGRAM CARDIAC CATHETERIZATION 06/2022 PROCEDURE: HISTORICAL CARDIAC CATH COLONOSCOPY PROCEDURE: HISTORICAL COLONOSCOPY OTHER SURGICAL HISTORY 07/2020 Right PROCEDURE: MS ANES ARTHROSCOPIC TOTAL SHOULDER REPLACEMENT OTHER SURGICAL HISTORY 07/2019 Left PROCEDURE: MS ANES ARTHROSCOPIC TOTAL SHOULDER REPLACEMENT CATARACT EXTRACTION [...] s, unspecified site Arthritis DX:Arthritis Crohn's disease ([facility] V24 , [facility] V28) DX:Crohn's disease (HCC) Eczema DX:Eczema GERD (gastroesophageal reflux disease) DX:GERD (gastroesophageal reflux disease) Hypokalemia DX:Hypokalemia Leg swelling DX:Leg swelling Morbid obesity (CMS/HCC V24, CMS/[facility] V28) DX:Morbid obesity (HCC) Polymyalgia rheumatica (CMS/HCC V24) DX:Polymyalgia rheumatica (HCC) Severe obesity (CMS/HCC V24, CMS/[facility] V28) DX:Severe obesity (HCC) Family History Medical [...] Description 04/30/2025 1:10 PM EDT Office Visit [facility] [address] [place] [id number] Sarbjit Nunes NP [address] [place] [address] [address] [place] [address] 06/12/2025 1:00 PM EDT Ancillary Procedure [facility] [address] [place] [id number] Health Maintenance Due Date Last Done Comments [...] this topic Medical Devices Implanted Type Area Digital Asset Specialist Device Identifier Shelf Expiration Date Model / Serial / Lot Medt-Card Claria Mri Quad Crtd [id number] Implanted:04/24 (Quantity not on file) Cardiac BACKREST ASSEMBLER-D ICD MEDTRONIC - CARDIAC RHYTH-CRDM CLARIA MRI QUAD CRTD [id number] / [id number] / Procedures Procedure Name Priority Date/Time Associated Diagnosis Comments CARDIAC DEVICE CHECK- REMOTE- MURJ Routine 03/15/2025 1:12 AM EDT CARDIAC DEVICE CHECK- REMOTE- MURJ Routine 02/16/2025 [...] EDT Dilated cardiomyopathy (CMS/HCC V24, CMS/HCC V28) from Last 3 Months Results * Cardiac device check - Remote- MURJ (03/15/2025 1:12 AM EDT) Only the most recent of5 resultswithin the time period is included. Date Time Interrogation Session [id number] CV DEVICE CHECK Type Interrogation Session Remote CV DEVICE CHECK Implantable Pulse Generator Digital Asset Specialist MDT CV DEVICE CHECK Implantable Pulse Generator Type BACKREST ASSEMBLER-D CV DEVICE CHECK Implantable Pulse Generator Model Claria MRI Quad CRTD [id number] CV DEVICE CHECK Implantable Pulse Generator Serial Number [id number] CV DEVICE CHECK Implantable Pulse Generator Implant Date [id number] CV DEVICE CHECK Battery Remaining Longevity 97.0 CV DEVICE CHECK Battery Voltage 3.000 CV D EVICE CHECK Battery CARD BOXER Trigger 2.727 CV DEVICE CHECK Battery Status Middle of Service CV DEVICE CHECK Capacitor Charge Time 3.673 CV DEVICE CHECK Medardo Statistic RA Percent Paced 15.34 CV DEVICE CHECK Medardo Statistic RV Percent Paced 4.60 CV DEVICE CHECK BACKREST ASSEMBLER Statistic LV Percent Paced 97.35 CV DEVICE CHECK BACKREST ASSEMBLER Statistic BACKREST ASSEMBLER Percent Paced 4.54 CV DEVICE CHECK Atrial Tachy Statistic AT/AF Canon Percent 0.00 CV DEVICE CHECK Lead Channel Sensing Intrinsic Amplitude 2.375 CV DEVICE CHECK Lead Channel Setting Sensing Sensitivity 0.30 CV DEVICE CHECK Lead Channel Impedance Value 418 CV DEVICE CHECK Lead Channel Pacing Threshold Amplitude 0.500 CV DEVICE CHECK Lead Channel Pacing Threshold Pulse Width 0.4 CV DEVICE CHECK Lead Channel RA Pacing Threshold Date 2025-03-13 CV DEVICE CHECK Lead Channel Setting Pacing Amplitude 1.500 CV DEVICE CHECK Lead Channel Setting Pacing Pulse Width 0.4 CV DEVICE CHECK Lead Channel Sensing Intrinsic Amplitude 6.250 CV DEVICE CHECK Lead Channel Setting Sensing Sensitivity 0.30 CV DEVICE CHECK Lead Channel Impedance Value 361 CV DEVICE CHECK Lead Channel Pacing Threshold Amplitude 1.125 CV DEVICE CHECK Lead Channel Pacing Threshold Pulse Width 0.4 CV DEVICE CHECK Lead Channel RV Pacing Threshold Date 2025-03-13 CV DEVICE CHECK Lead Channel Setting Pacing Amplitude 2.250 CV DEVICE CHECK Lead Channel Setting Pacing Pulse Width 0.4 CV DEVICE CHECK Lead Channel Impedance Value 646 CV DEVICE CHECK Lead Channel Pacing Threshold Amplitude 1.000 CV DEVICE CHECK Lead Channel Pacing Threshold Pulse Width 0.4 CV DEVICE CHECK Lead Channel Pacing Threshold Date 2025-03-13 CV DEVICE CHECK Lead Channel Setting Pacing Amplitude 1.500 CV DEVICE CHECK Lead Channel Setting Pacing Pulse Width 0.4 CV DEVICE CHECK Medardo Setting Mode (NBG Code) DDD CV DEVICE CHECK Ventricular chambers paced during BACKREST ASSEMBLER pacing. LVOnly CV DEVICE CHECK Medardo Setting Lower Rate Limit 60 CV DEVICE CHECK Medardo Setting AT Mode Switch Rate 171 CV DEVICE CHECK Medardo Setting Maximum Tracking Rate 130 CV DEVICE CHECK Medardo Setting Maximum Sensor Rate 130 CV DEVICE CHECK Medardo Setting PAV Delay 150 CV DEVICE CHECK Medardo Setting MERCY Delay 110 CV DEVICE CHECK Therapy Statistic Recent Shocks Delivered 0 CV DEVICE CHECK Therapy Statistic Recent Shocks Aborted 0 CV DEVICE CHECK Therapy Statistic Recent ATP Delivered 0 CV DEVICE CHECK RV HV Impedance 89 CV D EVICE CHECK Zone Setting Type [...] Anatomical Region Laterality Modality Device Interroga tion 03/13/2025 3:16 AM EDT Impressions 03/14/2025 2:27 PM EDT Heart Failure Diagnostic: Stable * Heart failure diagnostics assessed through the device * Status: Stable * No overt HF present Tachycardia: SVT * Stored EGMs are consistent with or suggestive of Supraventricular Tachycardia * AT burden: 0% * Total number of events: 1 ??21 bpm Narrative Procedure Note Cristel Manning MD - 03/15/2025 IMPRESSION: Heart Failure Diagnostic: Stable * Heart failure diagnostics assessed through the device * Status: Stable * No overt HF present Tachycardia: SVT * Stored EGMs are consistent with or suggestive of SupraventricularTachycardia * AT burden: 0% * Total number of events: 1 21 bpm us Cristel Manning MD CV IMPLANTABLE CARDIAC DEV ICE PROCEDURES Final Result * Thyroxine free (01/25/2025 1:37 PM EDT) T4 (Thyroxine) Free (Direct) 0.97 0.82 - 1.77 ng/dL [facility] 1 01/25/2025 1:37 PM EDT 01/25/2025 Narrative [facility] 1 - 01/26/2025 3:07 PM EDT Performed at: ??01 - [facility] [address] ??[id number] Oil Fire Specialist: Eve De Santiago MD, Phone: ??[phone] Silvio Hunter MD LAB BLOOD ORDERABLES Final Resul t [facility] 1 * (ABNORMAL) Thyroid stimulating hormone with reflex free T4 (01/25/2025 1:37 PM EDT) Thyroid Stimulating Hormone (TSH) 8.080(H) 0.450 - 4.500 uIU/mL [facility] 1 Blood Venous blood specimen / Unknown 01/25/2025 1:37 PM EDT 01/25/2025 Narrative [facility] 1 - 01/26/2025 3:07 PM EDT Performed at: ??01 - [facility] [address] ??[id number] Oil Fire Specialist: Eve De Santiago MD, Phone: ??[phone] us Silvio Hunter MD LAB BLOOD ORDERABLES Final Resul t [facility] 1 * Magnesium (01/25/2025 1:37 PM EDT) Magnesium 1.9 1.6 - 2.3 mg/dL [facility] 1 Blood Venous blood specimen / Unknown 01/25/2025 1:37 PM EDT 01/25/2025 Narrative [facility] 1 - 01/26/2025 3:07 PM EDT Performed at: ??01 - [facility] [address] ??[id number] Oil Fire Specialist: Eve De Santiago MD, Phone: ??[phone] Silvio Hunter MD LAB BLOOD ORDERABLES Final Resul t Performing Organization Address [facility] Co de Phone Number [facility] 1 * Hepatic function panel (01/25/2025 1:37 PM EDT) Pathologist [facility] Bilirubin Direct 0.10 0.00 - 0.40 mg/dL [facility] 1 Blood Venous blood specimen / Unknown 01/25/2025 1:37 PM EDT 01/25/2025 Narrative [facility] 1 - 01/26/2025 3:07 PM EDT Performed at: ??01 - [facility] [address] ??[id number] Oil Fire Specialist: Eve De Santiago MD, Phone: ??[phone] Silvio Hunter MD LAB BLOOD ORDERABLES Final Resul t Performing Organization Address City/[facility]/ZIP Co de Phone Number [facility] 1 * (ABNORMAL) [...] 11:07 AM EDT Performed at: ??01 - [facility] ??[id number] Oil Fire Specialist: Eve De Santiago MD, Phone: ??[phone] us Silvio Hunter MD LAB BLOOD ORDERABLES Final Resul t [facility] 1 * (ABNORMAL) TRANSTHORACIC ECHOCARDIOGRAM (TTE) COMPLETE W/ CONTRAST (01/22/2025 12:05 PM EDT) Left At[facility] Minor [place] 5.5 cm CV PACS Left At[facility] Major [place] 5.3 cm CV PACS LA Area Sys [...] Peak E Paresh 0.76 m/s CV PACS MS End Max Velocity 1.0 m/s CV PACS [...] was difficult due to: poor endocardial visualization. us Silvio Hunter MD CV ECHO PROCEDURES Final Result from Last 3 Months Insurance [employer] MED[employer]ARE Care Teams Hob Mill Operator Relationship Specialty Start Date End Date Megan Bolanos MD [address] [place] [phone] PCP - General Internal Medicine 01/22/25
== END 2025-04-04 15:22 | disposition home or self-care (01) ==
LOC: HO.RHE 14:01
PROVIDERS: PCP Internal Medicine; Visit Provider Student in an Organized Health Care Education/Training Program
DX: M15.9 Polyosteoarthritis, unspecified (principal); M85.89 Other specified disorders of bone density and structure, multiple sites; M35.3 Polymyalgia rheumatica
CPT/HCPCS: 99214; G2211

== ENCOUNTER → 2025-04-04 14:00 | Outpatient (BNVA) | payer MEDICARE, SELFPAY | PROVIDERS: PCP Internal Medicine; Visit Provider Student in an Organized Health Care Education/Training Program | DX: M15.9 Polyosteoarthritis, unspecified (principal); M85.89 Other specified disorders of bone density and structure, multiple sites; M35.3 Polymyalgia rheumatica | CPT/HCPCS: 99212 ==

== ENCOUNTER 2025-09-11 10:28 | Outpatient (AMB) | payer MEDICARE, SELFPAY ==
--- NOTE | 2025-09-11 10:33 | MHC.PC.OV ---
Vital Signs 09/11/25 10:34 Height 5 ft 2.2 in Weight 230 lb 4 oz BMI 41.8 BP 112/52 L Blood Pressure Location Lt brachial Position Sitting Respiration 14 Pulse 103 H Pulse Source Pulse Oximeter Pulse Oximetry (%) 96 Oxygen Delivery Method Room Air Intake Visit Reasons: follow up Intake Note: Follow up Degreasing Solution Mixer Required: No Allergies penicillin V Allergy (Intermediate, Verified 09/11/25 10:38) Rash benazepril Allergy (Mild, Verified 09/11/25 10:38) Cough aspirin Adverse Reaction (Intermediate, Verified 09/11/25 10:38) bleeding Tobacco use date assessed: 09/11/25 Fall risk assessment: No Falls in past year Last assessed Fall Risk: 09/11/25 Dental Screening Dental Screen Date: 03/05/25 HPI HPI Comments History of Present Illness Details Patient is an 79 year old female with a past medical history of CHF, atrial fibrillation, GERD, OA presenting for follow up CV: Follows with Dr Hunter. On eliquis, bumex, entresto, metroprolol, spironolactone, amoiodarone (restarted March 19). Denies chest pain, palpitations. Chronic LE edema. Increasing bumex in the past has hot helped OA: Knee pain, foot pain. Stable on prn tramadol. Had bilateral knee injections. Considering for bilateral knee replacement in the next few months. She is following with rheumatology GI: Crohns. Tolerates brand azulfidine. The generic sulfasalazine is not as effective She is stressed. Her has been waiting in the ER at [facility] for the past 24 hours after falling. He was told he had advanced liver problems Mammogram is utd. She is scheduled for follow up and us ROS see HPI PHYSICAL EXAM: GENERAL: Alert and oriented x 3. NAD EYES: EOMI. Anicteric. HENT: Moist mucous membranes. No scleral icterus. No cervical lymphadenopathy. LUNGS: Clear to auscultation bilaterally. CARDIOVASCULAR: Regular rate and rhythm. No JVD. ABDOMEN: Soft, non-tender +bs EXTREMITIES: Non pitting LE edema SKIN: No rashes or lesions. Warm. NEUROLOGIC: No focal neurological deficits. CN II-XII grossly intact PSYCHIATRIC: Cooperative. Appropriate mood and affect [facility] Medical History Osteopenia with high risk of fracture Polymyalgia rheumatica Surgical History History of implantable cardioverter-defibrillator (ICD) insertion Social History Household Members: Spouse Housing: House Alcohol intake: current Alcohol intake frequency: a few times a month Patient Tobacco Use Status: Never used Tobacco e-Cigarette/Vaping Use: Never Used Second Hand Smoke Exposure: Yes (past) Use of substances other than those prescribed or required for medical reasons: No service: No Current occupational status: employed 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 Current occupational exposures/hazards: No Cognitive needs: No Hearing needs: No Vision needs: No Questionnaire Thrive Questionnaire Date Thrive assessed: 03/02/25 I am a: Patient What is your living situation today?: I have a steady place to live Within the past 12 months, did the food you bought not last and you didn't have the money to get more?: Never true Within the past 12 months, did you worry whether your food would run out before you got money to buy more?: Never true Do you have trouble paying for medicines?: No Do you have trouble getting transportation to medical appointments?: No Do you have trouble paying your heating and electricity bill?: No Do you have trouble taking care of your child, family member or friend?: No Do you have trouble with day-to-day activities such as bathing, preparing meals, shopping, managing finances, etc.?: No Are you currently unemployed and looking for a job?: No Are you interested in more education?: No Please select the resources that you would like help with: None Currently or been in a relationship where the following occur: I choose not to answer THRIVE Score: 0 AUDIT C Alcohol Use Questionnaire (AUDIT-C) 1. How often do you have a drink containing alcohol?: 2-4 times a month 2. How many drinks containing alcohol do you have on a typical day when you are drinking?: 1 or 2 3. How often do you have six or more drinks on one occasion?: Never Total Score: 2 MARY JANE-7 AMB Questionnaire MARY JANE-7 Date MARY JANE - 7 assessed: 03/05/25 Source: Developed by Az Sandovalet B.W. David, Brien Byers and colleagues, with an educational beverley from [employer]. Physical exam (Primary Care) Vital Signs: Last Vital Signs Pulse 103 H 09/11/25 10:34 Resp 14 09/11/25 10:34 BP 112/52 L 09/11/25 10:34 Pulse Ox 96 09/11/25 10:34 Oxygen Delivery Method Room Air 09/11/25 10:34 BMI result Body Mass Index 41.8 Tobacco/Smoking Status: Tobacco use Status Tobacco use date assessed 09/11/25 09/11/25 10:45 Patient Tobacco Use Status Never used Tobacco 09/11/25 10:45 e-Cigarette/Vaping Use Never Used 09/11/25 10:45 Thrive Assessment: Date of Thrive Assessment Date Thrive assessed 03/02/25 09/11/25 10:45 Currently or been in a relationship where the following occur: I choose not to answer Coding Level of Care Code Est Pt Level 4 (71916) Complex EM visit Add On G2211 Diagnoses Chronic systolic congestive heart failure I50.22 Heart failure chronicity: chronic Heart failure type: systolic History of implantable cardioverter-defibrillator (ICD) insertion Z95.810 Crohn's disease without complication, unspecified gastrointestinal tract location K50.90 Digestive disease complication type: without complication Gastrointestinal tract location: unspecified location Polymyalgia rheumatica M35.3 Chronic pain of both knees M25.561; M25.562; G89.29 Chronicity: chronic Lymphedema I89.0 Assessment & Plan Assessment & Plan (1) Congestive heart failure (CHF): Code(s): I50.9 - Heart failure, unspecified Category: Medical Qualifiers: Heart failure chronicity: chronic Heart failure type: systolic Qualified Code(s): I50.22 - Chronic systolic (congestive) heart failure (2) History of implantable cardioverter-defibrillator (ICD) insertion: Code(s): Z95.810 - Presence of automatic (implantable) cardiac defibrillator Category: Surgical (3) Crohn's disease: Comment: Follows with Dr. Andrea Code(s): K50.90 - Crohn's disease, unspecified, without complications Category: Medical Qualifiers: Digestive disease complication type: without complication Gastrointestinal tract location: unspecified location Qualified Code(s): K50.90 - Crohn's disease, unspecified, without complications (4) Polymyalgia rheumatica: Code(s): M35.3 - Polymyalgia rheumatica Category: Medical (5) Knee pain, bilateral: Code(s): M25.561 - Pain in right knee; M25.562 - Pain in left knee Category: Medical Qualifiers: Chronicity: chronic Qualified Code(s): M25.561 - Pain in right knee; M25.562 - Pain in left knee; G89.29 - Other chronic pain (6) Lymphedema: Code(s): I89.0 - Lymphedema, not elsewhere classified Category: Medical Plan 79 year old female presenting for follow up Interval history reviewed CHF-continue cardiology follow up Non pitting edema/lymphedema-[facility] has scheduled follow up with GI. Brand azulfidine is more effective MSk-following with rheumatology Orders: Orders Hemoglobin A1c 09/11/25 D50.9 - Iron deficiency anemia, unspecified, I50.22 - Chronic systolic (congestive) heart failure, K50.90 - Crohn's disease, unspecified, without complications, M85.89 - Other specified disorders of bone density and structure, multiple sites TSH reflex Free T4 09/11/25 D50.9 - Iron deficiency anemia, unspecified, I50.22 - Chronic systolic (congestive) heart failure, K50.90 - Crohn's disease, unspecified, without complications, M85.89 - Other specified disorders of bone density and structure, multiple sites Thyroid Peroxidase Antibodies 09/11/25 D50.9 - Iron deficiency anemia, unspecified, I50.22 - Chronic systolic (congestive) heart failure, K50.90 - Crohn's disease, unspecified, without complications, M85.89 - Other specified disorders of bone density and structure, multiple sites Comprehensive Met. Panel 09/11/25 D50.9 - Iron deficiency anemia, unspecified, I50.22 - Chronic systolic (congestive) heart failure, K50.90 - Crohn's disease, unspecified, without complications, M85.89 - Other specified disorders of bone density and structure, multiple sites Complete Blood Count Auto Diff 09/11/25 D50.9 - Iron deficiency anemia, unspecified Vitamin B12 and Folate 09/11/25 D50.9 - Iron deficiency anemia, unspecified Referrals Lymphedema Clinic Referral I89.0 - Lymphedema, not elsewhere classified Medications: Changed From sulfasalazine (Azulfidine EN-tabs) 1,000 mg PO BID To Azulfidine EN-tabs (sulfasalazine) 1,000 mg (2 x 500 mg) PO BID 180 tabs 3RF NS
[2025-09-11 10:34] VITALS: BP 112/52; PULSE 103; RESP 14; O2SAT 96; BMI 41.8
== END 2025-09-11 11:16 | disposition home or self-care (01) ==
LOC: HO.HMCFM 10:29
PROVIDERS: PCP Internal Medicine; Visit Provider Internal Medicine
DX: I50.22 Chronic systolic (congestive) heart failure (principal); Z95.810 Presence of automatic (implantable) cardiac defibrillator; K50.90 Crohn's disease, unspecified, without complications; M35.3 Polymyalgia rheumatica; M25.561 Pain in right knee; M25.562 Pain in left knee; G89.29 Other chronic pain; I89.0 Lymphedema, not elsewhere classified

== ENCOUNTER 2025-09-11 10:28 | Outpatient (REF) | payer MEDICARE, SELFPAY ==
[2025-09-11 14:34] LABS: MANUAL DIFF FLAG NO
[2025-09-11 14:47] LABS: Hematocrit 34.9 % (37.0-47.0); Hemoglobin 10.3 g/dl (12.0-16.0); Imm Gran Abs Auto 0.07 X10*3/uL (0.00-0.03); Imm Gran Pct Auto 0.7 % (0.0-0.4); Lymphocytes Absolute Auto 2.0 X10*3/uL (1.2-4.9); Mean Corpuscular HGB Conc 29.5 g/dl (31.0-35.0); Mean Corpuscular Hemoglobin 29.3 pg (27.0-33.0); Mean Corpuscular Volume 99.4 fL (80.0-98.0); NRBC Abs Auto 0.000 X10*3/uL (0.0-0.012); NRBC Pct Auto 0.0 /100WBC (0.0-0.2); Platelet Count 417 X10*3/uL (160-400); Red Blood Count 3.51 X10*6/uL (4.20-5.50); White Blood Count 9.4 X10*3/uL (4.8-10.8)
[2025-09-11 15:20] LABS: Alanine Aminotransferase 15 U/L (0-31); Albumin Level 3.2 g/dL (3.5-5.0); Alkaline Phosphatase 85 U/L (39-117); Anion Gap 12 (12-20); Aspartate Amino Transferase 20 U/L (5-31); Blood Urea Nitrogen 22 mg/dL (9-16); Calcium 8.8 mg/dL (8.4-10.2); Carbon Dioxide 25 mmol/L (22-29); Chloride 107 mmol/L (96-108); Estimated Glomerular Filt Rate > 60; Iron 74 mcg/dL (30-160); Percent Iron Saturation 21 % (15-50); Potassium 4.2 mmol/L (3.3-5.1); Sodium 140 mmol/L (135-145); Total Iron Binding Capacity 360 mcg/dL (228-428); Total Protein 6.0 g/dL (6.5-8.0); Unsaturated Iron Binding 286 ug/dL
[2025-09-11 15:46] LABS: Folate 12.6 ng/mL (> or = 4.0); Vitamin B12 261 pg/mL (200-900)
[2025-09-11 16:11] LABS: Free T4 (Free Thyroxine) 0.98 ng/dL (0.71-1.85)
== END 2025-09-11 10:29 | disposition home or self-care (01) ==
LOC: HO.WFDLDS 10:28
PROVIDERS: PCP Internal Medicine; Visit Provider Internal Medicine
DX: I50.22 Chronic systolic (congestive) heart failure (principal); M35.3 Polymyalgia rheumatica; D50.9 Iron deficiency anemia, unspecified; M85.89 Other specified disorders of bone density and structure, multiple sites; K50.90 Crohn's disease, unspecified, without complications; Z79.01 Long term (current) use of anticoagulants; Z79.899 Other long term (current) drug therapy; M25.562 Pain in left knee; M25.561 Pain in right knee; M79.672 Pain in left foot; M79.671 Pain in right foot; M53.3 Sacrococcygeal disorders, not elsewhere classified; G89.29 Other chronic pain; I89.0 Lymphedema, not elsewhere classified; Z95.810 Presence of automatic (implantable) cardiac defibrillator
CPT/HCPCS: 36415; 80053; 82607; 82746; 83036; 83540; 84439; 84443; 85025; 86376; 99212

== ENCOUNTER 2025-09-27 12:41 | Outpatient (AMB) | payer MEDICARE, SELFPAY ==
--- NOTE | 2025-09-27 12:53 | A.OFFVIS_ITS ---
Vital Signs 09/27/25 13:07 Height 5 ft 2.2 in Weight 232 lb 5.875 oz BMI 42.2 BP 120/80 Blood Pressure Location Lt brachial Position Sitting Pulse 88 Pulse Source Pulse Oximeter Pulse Oximetry (%) 98 Oxygen Delivery Method Room Air Intake Visit Reasons: f/u OA and osteoporosis Intake Note: Patient presents today for Osteoporosis follow up. Language Specialist Required: No Accompanied by: Grand Child Allergies penicillin V Allergy (Intermediate, Verified 09/27/25 13:03) Rash benazepril Allergy (Mild, Verified 09/27/25 13:03) Cough aspirin Adverse Reaction (Intermediate, Verified 09/27/25 13:03) bleeding Medication List - Last Reconciled 09/27/25 by Ele Frances MD acetaminophen ER (Tylenol Arthritis Pain) 1,300 mg PO BID alendronate 70 mg PO QWEEK amiodarone 200 mg PO DAILY apixaban (Eliquis) 5 mg PO BID Azulfidine EN-tabs (sulfasalazine) 1,000 mg (2 x 500 mg) PO BID NS bumetanide 1 mg PO DAILY cholecalciferol (vitamin D3) 25 mcg PO DAILY clotrimazole-betamethasone 1-0.05 % 1 appl topical BID esomeprazole magnesium (Nexium) 40 mg PO DAILY folic acid 1 mg PO DAILY magnesium hydroxide 400 mg PO DAILY metoprolol succinate ER 75 mg PO DAILY omega-3 fatty acids (Fish Oil Concentrate) 1,000 mg PO DAILY rosuvastatin 10 mg PO DAILY sacubitril-valsartan 49-51 mg (Entresto) 1 tab PO BID spironolactone 25 mg PO DAILY walker (Ultra-Light Rollator misc) With seat HPI Comments Details: Patient is an 79-year-old female with AFib on Eliquis, hyperlipidemia, hypertension complicated by heart failure status post ICD placement, Crohn's disease, osteopenia and polyarticular osteoarthritis here today for follow up Interval History: Patient last seen 04/04/25 with me - OA: sees [facility] for ortho. And gets steroid injections. Last injection 01/2025 - Osteopenia: No falls or fractures. The pain did not after stopping the alendronate so she does not think it was related - PMR: No recurrence of symptoms after shoulder surgery. No headache or vision changes Today - On alendronate 70mg weekly - OA: sees [facility] for ortho. And gets steroid injections. Last injection 07/2025. Planning to do knee replacement - Osteopenia: No falls or fractures. Tolerating alendronate - PMR: No recurrence of symptoms. No headache or vision changes - No new complaints Rheumatologic History: On sulfasalazine for her history of Crohn's disease, diagnosed in her 30s Previously diagnosed with PMR however had improvement of her shoulder pain after right shoulder replacement. And so she was tapered off of her steroids. Was on alendronate for osteoporosis for 8 months and stopped after May 2021 due to hip pain Mother had history of PMR. 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 Current occupational exposures/hazards: No Cognitive needs: No Hearing needs: No Vision needs: No Review of Systems Narrative Review of Systems Constitutional: Denies fever, chills, weight loss ENT: Denies vision changes, eye pain or eye redness, dental caries, dry mouth GI: Denies nausea, vomiting, diarrhea, abdominal pain, change in BM Pulm: Denies SOB, SEXTON, hemoptysis, wheezing Cards: Denies chest pain, palpitations Skin: Denies Raynaud's, rash, nail changes, photosensitivity, 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 Well appearing and in no apparent painful distress HEENT Conjunctiva and sclera clear. No lymphadenopathy. CHEST/RESPIRATORY SYSTEM Normal respiratory effort and able to speak in complete sentences. Clear to auscultation bilaterally. No crackles, rales, rhonchi, wheezes heard. CARDIAC SYSTEM Regular rate and rhythm. S1 and S2 heard no murmurs. Radial pulses intact bilaterally MSK Hands * Right Hand: Able to make a fist. No swelling or tenderness to palpation of the MCPs, PIPs or DIPs. * Left Hand: Able to make a fist. No swelling or tenderness to palpation of the MCPs, PIPs or DIPs. * Herbedens and Bouchards nodes noted bilaterally Wrists * Right Wrist: Full ROM to flexion and extension. No swelling or TTP * Left Wrist: Full ROM to flexion and extension. No swelling or TTP Elbows * Right Elbow: Full ROM. No swelling or TTP. No TTP of the medial epicondyle. No TTP of the lateral epicondyle * Left Elbow: Full ROM. No swelling or TTP. No TTP of the medial epicondyle. No TTP of the lateral epicondyle Shoulders * Right shoulder: Decreased ROM. No swelling noted. No TTP of the AC joint. No TTP of the subacromial bursa. No TTP of the posterior shoulder * Left shoulder: Decreased ROM (but better than left) No swelling noted. No TTP of the AC joint. No TTP of the subacromial bursa. No TTP of the posterior shoulder Knees * Right knee: No swelling noted. No TTP of the knee joint line. No TTP of pes anserine bursa * Left knee: No swelling noted. No TTP of the knee joint line. No TTP of pes anserine bursa. * Crepitations felt bilaterally Lower extremity * Lymphedema bilaterally Tender points? * No tenderness to palpation of the bilateral trapezius, supraspinatus, anterior costochondral junctions, bilateral suboccipital muscle insertions SKIN No rashes Vital Signs: Last Vital Signs Pulse 88 09/27/25 13:07 BP 120/80 09/27/25 13:07 Pulse Ox 98 09/27/25 13:07 Oxygen Delivery Method Room Air 09/27/25 13:07 BMI result Body Mass Index 42.2 Results Reviewed Results Reviewed: Laboratory Tests 09/11/25 11:37 WBC 9.4 RBC 3.51 L Hgb 10.3 L D Hct 34.9 L Plt Count 417 H Sodium 140 Potassium 4.2 Chloride 107 Carbon Dioxide 25 BUN 22 H Creatinine 0.85 AST 20 ALT 15 TSH 7.26 H Free T4 0.98 DEXA 10/2024 FINDINGS: The bone mineral density of the lumbar spine is 1.438 with a T-score of 2.2, and a Z-score of 2.8. This represents a BMD change of -5.8% compared to the prior exam. This is statistically significant. The bone mineral density of the left total hip is 0.798 with a T-score of -1.7, and a Z-score of -0.4. This represents BMD change of -7.2% compared to the prior exam. This is statistically significant. The bone mineral density of the left femoral neck is 0.783 with a T-score of -1.8, and a Z-score of -0.4. This represents BMD change of -2.0% compared to the prior exam. FRACTURE RISK: The FRAX index suggests a ten year probability of major osteoporotic fracture of 19.5%, and of hip fracture 5.9%. Assessment & Plan Assessment & Plan (1) Generalized osteoarthritis: Code(s): M15.9 - Polyosteoarthritis, unspecified Category: Medical Plan: #Polyarticular OA Patient is an 79-year-old female with polyarticular osteoarthritis here today for follow up. Currently stable. Following up with Orthopedics for evaluation of knee replacement. Plan - Stable - RTC 6 months (2) Osteopenia: Comment: DEXA 09/2020. AP Spine 2.3, Left femur neck -2.0, Left femur total -1.2. FRAX: 18.5/5.3 DEXA 09/2022. AP Spine 2.4, Left femur neck -1.7, Left femur total -1.2. DEXA 10/2024. AP Spine 2.2, Left femur neck -1.7, Left femur total -1.8. FRAX: 19.5/5.9 DEXA in 2019 with T-score? -2.0 with high FRAX she was started on alendronate due to the high FRAX which she took for approximately 8 months and stopped May 2021.? Alendronate was discontinued by the patient due to hip pain Code(s): M85.80 - Other specified disorders of bone density and structure, unspecified site Category: Medical Qualifiers: Osteopenia location: multiple sites Qualified Code(s): M85.89 - Other specified disorders of bone density and structure, multiple sites Plan: #Osteopenia Patient with osteopenia with elevated FRAX Tolerating alendronate Plan - Continue Vit D supplementation - Alendronate 70mg weekly (3) Polymyalgia rheumatica: Code(s): M35.3 - Polymyalgia rheumatica Category: Medical Plan: #History of PMR Patient diagnosed with PMR based on bilateral shoulder pain. Off prednisone since November 2020. Her pain improved after bilateral shoulder replacements. PMR continues to appear to be in remission. No further action needed at this time. Plan I spent 25 minutes reviewing the record and labs, taking a history, examining the patient, discussing the treatment plan, ordering diagnostic work up and documenting in the medical record Orders: Orders Vitamin D 25-OH Total 6 Months E55.9 - Vitamin D deficiency, unspecified Comprehensive Met. Panel 6 Months Z79.899 - Other alf (current) drug therapy C Reactive Protein 6 Months Z79.899 - Other alf (current) drug therapy Erythrocyte Sedimentation Rate 6 Months Z79.899 - Other superintendent terminal (current) drug therapy Coding Level of Care Code Est Pt Level 3 (23653) Complex visit Add On G2211 Diagnoses Generalized osteoarthritis M15.9 Osteopenia of multiple sites M85.89 Osteopenia location: multiple sites Polymyalgia rheumatica M35.3
[2025-09-27 13:07] VITALS: BP 120/80; PULSE 88; O2SAT 98; BMI 42.2
== END 2025-09-27 13:27 | disposition home or self-care (01) ==
LOC: HO.RHES 12:42
PROVIDERS: PCP Internal Medicine; Visit Provider Student in an Organized Health Care Education/Training Program
DX: M15.9 Polyosteoarthritis, unspecified (principal); M85.89 Other specified disorders of bone density and structure, multiple sites; M35.3 Polymyalgia rheumatica
CPT/HCPCS: 99213; G2211

== ENCOUNTER → 2025-09-27 12:41 | Outpatient (BNVA) | payer MEDICARE, SELFPAY | PROVIDERS: PCP Internal Medicine; Visit Provider Student in an Organized Health Care Education/Training Program | DX: M15.9 Polyosteoarthritis, unspecified (principal); M85.89 Other specified disorders of bone density and structure, multiple sites; M35.3 Polymyalgia rheumatica | CPT/HCPCS: 99212 ==